=== PATIENT | male | born 1950 | race African-American/Black ===

== ENCOUNTER 2016-04-22 19:21 | Emergency (ER) | payer MEDICARE ==
[~2016-04-22] VITALS: Ht 180.3 cm; Wt 81.8 kg
[~2016-04-22 19:21] MED LIST: ALBU8.5H IH; ASPI-1061 PO; FLUT1DIS5 PO; INSLAN SQ; IPRA0.2S54 IH; IPRAHFA IH; METH10 PO; MONT10TA21 PO; OXYC10TA93 PO; PRED20 PO
[2016-04-22] MEDS ORDERED: IPRATROPIUM BROMIDE 0.5 MG/2.5 ML NEB SOLUTION NEB ONE (19:45)
[2016-04-22] MEDS ORDERED: ALBUTEROL SULFATE 5 MG/ML 20 ML NEB SOLN [BULK] NEB ONE (19:45)
[2016-04-22] MEDS ORDERED: MethylPREDNISolone SOD SUCC 125 MG/2 ML VIAL IVP ONE (19:45)
[2016-04-22] MEDS ORDERED: 0.9% SODIUM CHLORIDE 5 ML NEB SOLUTION NEB ONE (19:51)
[2016-04-22 20:27] VITALS: BP 135/72
== END 2016-04-22 20:52 | disposition left against medical advice (07) ==
LOC: EMS 19:23
DX: J18.9 Pneumonia, unspecified organism (principal); J44.9 Chronic obstructive pulmonary disease, unspecified; J45.909 Unspecified asthma, uncomplicated; I11.0 Hypertensive heart disease with heart failure; I50.9 Heart failure, unspecified; E11.9 Type 2 diabetes mellitus without complications; E78.00 Pure hypercholesterolemia, unspecified; F14.90 Cocaine use, unspecified, uncomplicated; F11.90 Opioid use, unspecified, uncomplicated; Z79.82 Long term (current) use of aspirin; Z79.4 Long term (current) use of insulin; Z87.891 Personal history of nicotine dependence
CPT/HCPCS: 93005; 94644; 99285; J2930

== ENCOUNTER 2016-05-20 22:16 | Inpatient (IN) | payer MEDICARE ==
[~2016-05-20] VITALS: Ht 180.3 cm; Wt 79.7 kg
[~2016-05-20 22:16] MED LIST changes: -PRED20 PO
[2016-05-20] MEDS ORDERED: ALBUTEROL SULFATE 2.5 MG/0.5 ML NEB SOLUTION NEB ONE (22:25)
[2016-05-20] MEDS ORDERED: IPRATROPIUM BROMIDE 0.5 MG/2.5 ML NEB SOLUTION NEB ONE ×2 (22:25→23:15)
[2016-05-20] MEDS ORDERED: PREG75 PO (22:29)
[2016-05-20] MEDS ORDERED: MONT10TA21 PO (22:29)
[2016-05-20] MEDS ORDERED: TIOT185 IH (22:29)
[2016-05-20] MEDS ORDERED: ALPR0.255 PO (22:29)
[2016-05-20] MEDS ORDERED: HYDR-3971 PO (22:29)
[2016-05-20] MEDS ORDERED: PRED20 PO (22:29)
[2016-05-20] MEDS ORDERED: ADV500 IH (22:29)
[2016-05-20] MEDS ORDERED: METO100XL PO (22:29)
[2016-05-20] MEDS ORDERED: [UNRECOGNIZED DRUG - CODE] TD (22:29)
[2016-05-20] MEDS ORDERED: FAMO20 PO (22:29)
[2016-05-20] MEDS ORDERED: ZOLP10 PO (22:29)
[2016-05-20] MEDS ORDERED: IPRA3AMP4 NEB (22:29)
[2016-05-20] MEDS ORDERED: OXYC10 PO (22:29)
[2016-05-20] MEDS ORDERED: ERGO400T3 PO (22:29)
[2016-05-20] MEDS ORDERED: TRAZ-147 PO (22:29)
[2016-05-20 22:46] LABS: GLUCOSE,POINT OF CARE 130 MG/DL (70-110)
[2016-05-20 22:59] LABS: BASOPHILS % (AUTO) 0.4 % (0.0-2.0); EOSINOPHILS % (AUTO) 2.9 % (1.0-6.0); HEMATOCRIT 44.8 % (41-53); HEMOGLOBIN 14.2 g/dL (13.5-17.5); LYMPHOCYTES # (AUTO) 1.7 K/uL (1.0-4.8); LYMPHOCYTES % (AUTO) 20.6 % (22.0-44.0); MEAN CORPUSCULAR HEMOGLOBIN 27.8 pg (26.0-34.0); MEAN CORPUSCULAR HGB CONC 31.8 G/dL (31.0-37.0); MEAN CORPUSCULAR VOLUME 88 fL (80-100); MONOCYTES # (AUTO) 0.3 K/uL (0.1-1.0); MONOCYTES % (AUTO) 3.4 % (2.0-9.0); NEUTROPHILS % (AUTO) 72.7 % (40.0-70.0); PLATELET COUNT (AUTO) 122 K/uL (150-450); RED BLOOD CELL COUNT(AUTO) 5.11 MIL/uL (4.50-5.90); WHITE BLOOD COUNT (AUTO) 8.3 K/uL (4.5-11.0)
[2016-05-20] MEDS ORDERED: ALBUTEROL SULFATE 5 MG/ML 20 ML NEB SOLN [BULK] NEB ONE (23:15)
[2016-05-20] MEDS ORDERED: MethylPREDNISolone SOD SUCC 125 MG/2 ML VIAL IM ONE (23:15)
[2016-05-20 23:18] LABS: RBC MORPHOLOGY COMMENT NORMAL RBC MORPH
[2016-05-20 23:23] LABS: B-TYPE NATRIURETIC PEPTIDE 78 pg/mL (0-100)
[2016-05-20 23:26] LABS: ANION GAP 5 mmol/L (8-16); CALCIUM, TOTAL 8.3 mg/dL (8.8-10.5); CARBON DIOXIDE 35 mmol/L (22-29); CHLORIDE 103 mmol/L (98-107); CREATININE 1.46 mg/dL (0.60-1.30); GLOMERULAR FILTR. RATE CALC 58 mL/min (>60); POTASSIUM 4.1 mmol/L (3.5-5.1); SODIUM SERUM 143 mmol/L (136-145); UREA NITROGEN, BLOOD 21 mg/dL (7-18)
[2016-05-20 23:33] LABS: INR 1.1 (0.9-1.1); PROTHROMBIN TIME 11.3 SEC (9.4-11.6)
[2016-05-20 23:34] LABS: ALANINE AMINOTRANSFERASE 25 U/L (12-78); ALBUMIN 3.4 g/dL (3.4-5.0); ASPARTATE AMINOTRANSFERASE 23 U/L (15-37); BILIRUBIN,TOTAL 0.6 mg/dL (0.1-1.0); CREATINE KINASE, TOTAL 69 U/L (39-308); TOTAL PROTEIN, SERUM 7.6 g/dL (6.4-8.2)
[2016-05-21] MEDS ORDERED: ALBUTEROL SULFATE HFA 90 MCG/PUFF 8 GM INHALER IH ONE (00:45)
[2016-05-21] MEDS ORDERED: ACETAMINOPHEN 325 MG TABLET PO PRN (02:15)
[2016-05-21] MEDS ORDERED: ONDANSETRON HCL 4 MG/2 ML VIAL IVP PRN ×2 (02:15→05:45)
[2016-05-21] MEDS ORDERED: 0.9% SODIUM CHLORIDE 10 ML SYRINGE IVP PRN ×2 (02:15→05:45)
[2016-05-21] MEDS ORDERED: ALBUTEROL SULFATE 2.5 MG/0.5 ML NEB SOLUTION NEB SCH (03:00)
[2016-05-21] MEDS ORDERED: IPRATROPIUM BROMIDE 0.5 MG/2.5 ML NEB SOLUTION NEB SCH (03:00)
[2016-05-21 04:02] VITALS: BP 100/59
[2016-05-21] MEDS ORDERED: OxyCODONE HCL 10 MG ER TABLET PO PRN (05:00)
[2016-05-21] MEDS ORDERED: GuaiFENesin/D-METHORPHAN [SUGAR-FREE] 200-20MG/10 ML SYRUP UDCUP PO PRN (05:15)
[2016-05-21] MEDS ORDERED: IPRATROPIUM BROMIDE 0.5 MG/2.5 ML NEB SOLUTION NEB PRN (05:30)
[2016-05-21] MEDS ORDERED: ALBUTEROL SULFATE 2.5 MG/0.5 ML NEB SOLUTION NEB PRN (05:30)
[2016-05-21] MEDS ORDERED: ZOLPIDEM TARTRATE 10 MG TABLET PO PRN (05:30)
[2016-05-21] MEDS ORDERED: DEXTROSE 50%-WATER 25 GM/50 ML SYRINGE IVP PRN (05:30)
[2016-05-21] MEDS ORDERED: NITROGLYCERIN TD PRN (05:30)
[2016-05-21] MEDS ORDERED: OxyCODONE HCL/ACETAMINOPHEN 5-325 MG TABLET PO PRN ×2 (05:45)
[2016-05-21] MEDS ORDERED: INFLUENZA VIRUS VACCINE QVS 2016-17 (3YR+)/PF 60 MCG/0.5 ML SYRINGE IM ONE (05:45)
[2016-05-21] MEDS ORDERED: MethylPREDNISolone SOD SUCC 125 MG/2 ML VIAL IVP ONE (06:00)
[2016-05-21] MEDS: INSULIN ASPART 100 UNITS/ML SQ PRN ×4 (06:19→21:04)
[2016-05-21] MEDS: MethylPREDNISolone SOD SUCC 125 MG/2 ML VIAL IVP SCH ×2 (06:31→16:01)
[2016-05-21] MEDS: HYDROCODONE/ACETAMINOPHEN 10-325 MG TABLET PO PRN (06:37)
[2016-05-21 07:31] VITALS: BP 129/84
[2016-05-21] MEDS: ALBUTEROL SULFATE 2.5 MG/0.5 ML NEB SOLUTION NEB SCH ×3 (07:52→19:44)
[2016-05-21] MEDS: IPRATROPIUM BROMIDE 0.5 MG/2.5 ML NEB SOLUTION NEB SCH ×3 (07:52→19:44)
[2016-05-21] MEDS ORDERED: OXYGEN THERAPY IH SCH (08:00)
[2016-05-21] MEDS: PREGABALIN 75 MG CAPSULE PO SCH ×2 (08:26→21:01)
[2016-05-21] MEDS: ALPRAZolam 0.25 MG TABLET PO SCH ×2 (08:26→16:08)
[2016-05-21] MEDS: PANTOPRAZOLE SODIUM 40 MG/VIAL IVP SCH (08:26)
[2016-05-21] MEDS: TIOTROPIUM BROMIDE 18 MCG/INH HANDIHALER [5] IH SCH (08:26)
[2016-05-21] MEDS: MONTELUKAST SODIUM 10 MG TABLET PO SCH (08:27)
[2016-05-21] MEDS: DOCUSATE SODIUM 100 MG CAPSULE PO SCH ×3 (08:27→21:06)
[2016-05-21] MEDS: INSULIN DETEMIR 100 UNITS/ML SQ SCH (08:28)
[2016-05-21 11:43] LABS: GLUCOSE,POINT OF CARE 329 MG/DL (70-110)
[2016-05-21 11:52] LABS: GLUCOSE,POINT OF CARE 282 MG/DL (70-110)
[2016-05-21 12:07] VITALS: BP 120/63
[2016-05-21] MEDS: METOPROLOL SUCCINATE 50 MG ER TABLET PO SCH (16:01)
[2016-05-21 16:03] VITALS: BP 149/83
[2016-05-21 17:32] LABS: GLUCOSE,POINT OF CARE 379 MG/DL (70-110)
[2016-05-21 20:41] VITALS: BP 112/70
[2016-05-21] MEDS ORDERED: TraZODone HCL 100 MG TABLET PO SCH (21:00)
[2016-05-22] MEDS: ALPRAZolam 0.25 MG TABLET PO SCH ×3 (00:25→16:29)
[2016-05-22] MEDS: MethylPREDNISolone SOD SUCC 125 MG/2 ML VIAL IVP SCH ×3 (00:25→16:29)
[2016-05-22 00:34] VITALS: BP 108/69
[2016-05-22] MEDS: HYDROCODONE/ACETAMINOPHEN 10-325 MG TABLET PO PRN (00:34)
[2016-05-22 00:47] LABS: GLUCOSE COMMENT 1 Received Meds; GLUCOSE,POINT OF CARE 183 MG/DL (70-110)
[2016-05-22] MEDS: IPRATROPIUM BROMIDE 0.5 MG/2.5 ML NEB SOLUTION NEB SCH ×4 (01:39→18:44)
[2016-05-22] MEDS: ALBUTEROL SULFATE 2.5 MG/0.5 ML NEB SOLUTION NEB SCH ×4 (01:41→18:44)
[2016-05-22 06:14] VITALS: BP 132/68
[2016-05-22] MEDS: INSULIN ASPART 100 UNITS/ML SQ PRN ×4 (06:23→20:50)
[2016-05-22 07:21] VITALS: BP 104/58
[2016-05-22 07:51] LABS: GLUCOSE COMMENT 1 Received Meds; GLUCOSE,POINT OF CARE 221 MG/DL (70-110)
[2016-05-22] MEDS: PANTOPRAZOLE SODIUM 40 MG/VIAL IVP SCH (08:39)
[2016-05-22] MEDS: MONTELUKAST SODIUM 10 MG TABLET PO SCH (08:40)
[2016-05-22] MEDS: METOPROLOL SUCCINATE 50 MG ER TABLET PO SCH (08:40)
[2016-05-22] MEDS: TIOTROPIUM BROMIDE 18 MCG/INH HANDIHALER [5] IH SCH (08:40)
[2016-05-22] MEDS: PREGABALIN 75 MG CAPSULE PO SCH (08:43)
[2016-05-22] MEDS: INSULIN DETEMIR 100 UNITS/ML SQ SCH (08:46)
[2016-05-22 08:54] LABS: HEMATOCRIT 42.6 % (41-53); HEMOGLOBIN 13.6 g/dL (13.5-17.5); MEAN CORPUSCULAR HEMOGLOBIN 27.9 pg (26.0-34.0); MEAN CORPUSCULAR HGB CONC 31.8 G/dL (31.0-37.0); MEAN CORPUSCULAR VOLUME 88 fL (80-100); PLATELET COUNT (AUTO) 101 K/uL (150-450); RED BLOOD CELL COUNT(AUTO) 4.85 MIL/uL (4.50-5.90); RED CELL DISTRIBUTION WIDTH 15.1 % (11.5-14.5)
[2016-05-22 09:25] LABS: POTASSIUM 4.7 mmol/L (3.5-5.1)
[2016-05-22 09:26] LABS: CALCIUM, TOTAL 8.5 mg/dL (8.8-10.5); CREATININE 1.56 mg/dL (0.60-1.30)
[2016-05-22 09:42] LABS: WHITE BLOOD COUNT (AUTO) 13.6 K/uL (4.5-11.0)
[2016-05-22 09:45] LABS: LYMPHOCYTES % (MANUAL) 8 % (22-44); TOTAL CELLS COUNTED 100
[2016-05-22 11:36] VITALS: BP 112/70
[2016-05-22 12:47] LABS: GLUCOSE,POINT OF CARE 326 MG/DL (70-110)
[2016-05-22 15:19] VITALS: BP 124/76
[2016-05-22 19:51] LABS: GLUCOSE,POINT OF CARE 290 MG/DL (70-110)
[2016-05-22 20:45] VITALS: BP 119/75
[2016-05-23 01:32] LABS: GLUCOSE,POINT OF CARE 263 MG/DL (70-110)
== END 2016-05-22 22:45 | disposition home or self-care (01) | DRG 189 ==
LOC: EMS 22:19 → 6N 05-21 02:15
PROVIDERS: ADMIT Internal Medicine; ATTEND Internal Medicine
DX: J96.20 Acute and chronic respiratory failure, unspecified whether with hypoxia or hypercapnia (principal); J44.1 Chronic obstructive pulmonary disease with (acute) exacerbation; J98.11 Atelectasis; I11.0 Hypertensive heart disease with heart failure; E86.0 Dehydration; E78.00 Pure hypercholesterolemia, unspecified; E11.9 Type 2 diabetes mellitus without complications; F11.99 Opioid use, unspecified with unspecified opioid-induced disorder; F11.90 Opioid use, unspecified, uncomplicated; I50.9 Heart failure, unspecified; F14.90 Cocaine use, unspecified, uncomplicated; I51.7 Cardiomegaly; J45.909 Unspecified asthma, uncomplicated; K21.9 Gastro-esophageal reflux disease without esophagitis; Z87.891 Personal history of nicotine dependence; Z99.81 Dependence on supplemental oxygen; Z79.2 Long term (current) use of antibiotics; Z79.82 Long term (current) use of aspirin; Z79.4 Long term (current) use of insulin; Z79.899 Other long term (current) drug therapy; Z28.21 Immunization not carried out because of patient refusal; Z79.51 Long term (current) use of inhaled steroids; Z98.890 Other specified postprocedural states
CPT/HCPCS: 82962; 87081; 93005; 94640; 96372; 99285; C9113; J2930; J3535

== ENCOUNTER 2016-06-05 13:15 | Inpatient (IN) | payer MEDICARE ==
[~2016-06-05] VITALS: Ht 180.3 cm; Wt 94.5 kg
[~2016-06-05 13:15] MED LIST changes: +ADV500 IH; -ALBU8.5H IH; +ALPR0.255 PO; -ASPI-1061 PO; +ERGO400T3 PO; +FAMO20 PO; -FLUT1DIS5 PO; +HYDR-3971 PO; -IPRA0.2S54 IH; +IPRA3AMP4 NEB; -IPRAHFA IH; -METH10 PO; +METO100XL PO; +OXYC10 PO; -OXYC10TA93 PO; +PRED20 PO; +PREG75 PO; +TIOT185 IH; +TRAZ-147 PO; +ZOLP10 PO; +[UNRECOGNIZED DRUG - CODE] TD
[2016-06-05] MEDS ORDERED: IPRATROPIUM BROMIDE 0.5 MG/2.5 ML NEB SOLUTION NEB ONE ×2 (13:30→14:00)
[2016-06-05] MEDS ORDERED: ALBUTEROL SULFATE 2.5 MG/0.5 ML NEB SOLUTION NEB ONE ×2 (13:30)
[2016-06-05 13:52] LABS: BASOPHILS # (AUTO) 0.04 K/uL (0.00-0.20); BASOPHILS % (AUTO) 0.5 % (0.0-2.0); EOSINOPHILS # (AUTO) 0.04 K/uL (0.00-0.70); EOSINOPHILS % (AUTO) 0.48 % (1.0-6.0); HEMATOCRIT 38.7 % (41-53); HEMOGLOBIN 12.9 g/dL (13.5-17.5); LYMPHOCYTES # (AUTO) 0.9 K/uL (1.0-4.8); LYMPHOCYTES % (AUTO) 10.7 % (22.0-44.0); MEAN CORPUSCULAR HEMOGLOBIN 28.7 pg (26.0-34.0); MEAN CORPUSCULAR HGB CONC 33.3 G/dL (31.0-37.0); MEAN CORPUSCULAR VOLUME 86 fL (80-100); MONOCYTES # (AUTO) 0.2 K/uL (0.1-1.0); MONOCYTES % (AUTO) 1.9 % (2.0-9.0); NEUTROPHILS # (AUTO) 7.1 K/uL (1.8-7.7); PLATELET COUNT (AUTO) 131 K/uL (150-450); RED BLOOD CELL COUNT(AUTO) 4.49 MIL/uL (4.50-5.90); WHITE BLOOD COUNT (AUTO) 8.2 K/uL (4.5-11.0)
[2016-06-05 13:56] LABS: NEUTROPHILS % (AUTO) 86.4 % (40.0-70.0)
[2016-06-05] MEDS ORDERED: MethylPREDNISolone SOD SUCC 125 MG/2 ML VIAL IVP ONE (14:00)
[2016-06-05] MEDS ORDERED: ASPIRIN 81 MG CHEWABLE TABLET PO ONE (14:00)
[2016-06-05] MEDS ORDERED: ALBUTEROL SULFATE 5 MG/ML 20 ML NEB SOLN [BULK] NEB ONE (14:00)
[2016-06-05] MEDS ORDERED: NITROGLYCERIN 2% (1 GM=INCH) PACKET TP ONE (14:00)
[2016-06-05] MEDS ORDERED: 0.9% SODIUM CHLORIDE 5 ML NEB SOLUTION NEB ONE (14:02)
[2016-06-05 14:06] LABS: ANION GAP 5 mmol/L (8-16); CALCIUM, TOTAL 8.1 mg/dL (8.8-10.5); CARBON DIOXIDE 34 mmol/L (22-29); CHLORIDE 105 mmol/L (98-107); CREATININE 1.41 mg/dL (0.60-1.30); GLOMERULAR FILTR. RATE CALC > 60 mL/min (>60); POTASSIUM 4.2 mmol/L (3.5-5.1); SODIUM SERUM 144 mmol/L (136-145); UREA NITROGEN, BLOOD 24 mg/dL (7-18)
[2016-06-05 14:09] LABS: ALANINE AMINOTRANSFERASE 33 U/L (12-78); ALBUMIN 2.9 g/dL (3.4-5.0); ASPARTATE AMINOTRANSFERASE 14 U/L (15-37); BILIRUBIN,TOTAL 0.3 mg/dL (0.1-1.0); CREATINE KINASE, TOTAL 39 U/L (39-308); TOTAL PROTEIN, SERUM 6.8 g/dL (6.4-8.2)
[2016-06-05 14:26] LABS: B-TYPE NATRIURETIC PEPTIDE 158 pg/mL (0-100)
[2016-06-05 14:34] LABS: APPEARANCE,URINE CLOUDY (CLEAR); GLUCOSE, URINE (UA) NEGATIVE (NEGATIVE); KETONES,URINE NEGATIVE (NEGATIVE); LEUKOCYTE ESTERASE ,URINE TRACE (NEGATIVE); OCCULT BLOOD,URINE NEGATIVE (NEGATIVE); PROTEIN,URINE NEGATIVE (NEGATIVE)
[2016-06-05 14:35] LABS: ADD UA MICROSCOPIC YES
[2016-06-05 14:37] LABS: RBC,URINE None Seen /HPF (0-2)
[2016-06-05 14:38] LABS: SQUAMOUS EPITHELIAL CELL,UR Rare /LPF (None Seen)
[2016-06-05 15:11] LABS: ABG A-A DIFF O2 45.7 mmHg (10-20.0); ABG BASE EXCESS 6.1 mmol/L (-2.0-3.0); ABG HCO3 28.5 mmol/L (22.0-26.0); ABG OXYHEMOGLOBIN 95.4 % (94.0-100.0); ABG PCO2 59 mmHg (35-45); TEMPERATURE, FAHRENHEIT, BG 98.6 FAHREN (96.0-98.6)
[2016-06-05 15:12] LABS: ALLEN TEST, BLOOD GAS Positive
[2016-06-05 15:13] LABS: IPAP, BG 15 cm H2O
[2016-06-05] MEDS ORDERED: ACETAMINOPHEN 325 MG TABLET PO PRN (15:15)
[2016-06-05] MEDS ORDERED: DEXTROSE 50%-WATER 25 GM/50 ML SYRINGE IVP PRN (15:15)
[2016-06-05] MEDS ORDERED: ONDANSETRON HCL 4 MG/2 ML VIAL IVP PRN (15:15)
[2016-06-05] MEDS ORDERED: ZOLPIDEM TARTRATE 10 MG TABLET PO PRN (15:15)
[2016-06-05] MEDS ORDERED: SODIUM CHLORIDE 0.9% 0 ML IV ONE (18:25)
[2016-06-05 18:27] LABS: GLUCOSE,POINT OF CARE 215 MG/DL (70-110)
[2016-06-05 18:43] VITALS: BP 137/75
[2016-06-05] MEDS: HEPARIN SODIUM,PORCINE 5,000 UNITS/ML VIAL SQ SCH (18:53)
[2016-06-05] MEDS: MethylPREDNISolone SOD SUCC 125 MG/2 ML VIAL IVP SCH (18:53)
[2016-06-05] MEDS: OxyCODONE HCL/ACETAMINOPHEN 5-325 MG TABLET PO PRN (18:56)
[2016-06-05] MEDS: ALPRAZolam 0.25 MG TABLET PO SCH (18:56)
[2016-06-05] MEDS: INSULIN ASPART 100 UNITS/ML SQ PRN ×2 (18:59→20:56)
[2016-06-05] MEDS: ALBUTEROL SULFATE 2.5 MG/0.5 ML NEB SOLUTION NEB SCH (20:05)
[2016-06-05] MEDS: IPRATROPIUM BROMIDE 0.5 MG/2.5 ML NEB SOLUTION NEB SCH (20:05)
[2016-06-05] MEDS ORDERED: SODIUM CHLORIDE 0.9% 250 ML IV ONE (20:40)
[2016-06-05] MEDS: LEVOFLOXACIN 500 MG/D5% WATER 100 ML IV SCH (20:53)
[2016-06-05] MEDS: PREGABALIN 75 MG CAPSULE PO SCH (20:53)
[2016-06-05] MEDS: TraZODone HCL 100 MG TABLET PO SCH (20:54)
[2016-06-05] MEDS: INSULIN DETEMIR 100 UNITS/ML SQ SCH (20:55)
[2016-06-05 23:17] LABS: GLUCOSE COMMENT 1 Received Meds; GLUCOSE,POINT OF CARE 274 MG/DL (70-110)
[2016-06-06] VITALS (7 sets, daily range): BP systolic 97–118; BP diastolic 52–74
[2016-06-06] MEDS: HEPARIN SODIUM,PORCINE 5,000 UNITS/ML VIAL SQ SCH ×3 (00:09→16:12)
[2016-06-06] MEDS: ALPRAZolam 0.25 MG TABLET PO SCH ×3 (00:09→16:11)
[2016-06-06] MEDS: MethylPREDNISolone SOD SUCC 125 MG/2 ML VIAL IVP SCH ×4 (00:09→18:26)
[2016-06-06] MEDS: ALBUTEROL SULFATE 2.5 MG/0.5 ML NEB SOLUTION NEB SCH ×4 (01:19→21:01)
[2016-06-06] MEDS: IPRATROPIUM BROMIDE 0.5 MG/2.5 ML NEB SOLUTION NEB SCH ×4 (01:19→21:01)
[2016-06-06 02:57] LABS: GLUCOSE,POINT OF CARE 367 MG/DL (70-110)
[2016-06-06 06:00] LABS: EOSINOPHILS % (AUTO) 0 % (1.0-6.0); HEMATOCRIT 35.9 % (41-53); LYMPHOCYTES # (AUTO) 0.4 K/uL (1.0-4.8); LYMPHOCYTES % (AUTO) 5.9 % (22.0-44.0); MEAN CORPUSCULAR HGB CONC 33.4 G/dL (31.0-37.0); MEAN CORPUSCULAR VOLUME 87 fL (80-100); MONOCYTES # (AUTO) 0.1 K/uL (0.1-1.0); MONOCYTES % (AUTO) 1.2 % (2.0-9.0); NEUTROPHILS # (AUTO) 5.5 K/uL (1.8-7.7); PLATELET COUNT (AUTO) 118 K/uL (150-450); RED BLOOD CELL COUNT(AUTO) 4.13 MIL/uL (4.50-5.90)
[2016-06-06] MEDS: INSULIN ASPART 100 UNITS/ML SQ PRN ×4 (06:08→20:52)
[2016-06-06 06:21] LABS: ALANINE AMINOTRANSFERASE 28 U/L (12-78); ALBUMIN 2.7 g/dL (3.4-5.0); ANION GAP 7 mmol/L (8-16); ASPARTATE AMINOTRANSFERASE 11 U/L (15-37); BILIRUBIN,TOTAL 0.3 mg/dL (0.1-1.0); CALCIUM, TOTAL 8.2 mg/dL (8.8-10.5); CARBON DIOXIDE 31 mmol/L (22-29); CHLORIDE 103 mmol/L (98-107); CREATININE 1.37 mg/dL (0.60-1.30); GLOMERULAR FILTR. RATE CALC > 60 mL/min (>60); PHOSPHORUS 3.2 mg/dL (2.5-4.9); POTASSIUM 4.5 mmol/L (3.5-5.1); SODIUM SERUM 141 mmol/L (136-145); THYROID STIMULATING HORMONE 0.15 uIU/mL (0.36-3.74); TOTAL PROTEIN, SERUM 6.3 g/dL (6.4-8.2); UREA NITROGEN, BLOOD 27 mg/dL (7-18)
[2016-06-06 06:50] LABS: NEUTROPHILS % (AUTO) 92.9 % (40.0-70.0)
[2016-06-06 06:54] LABS: GLUCOSE COMMENT 1 Received Meds; GLUCOSE,POINT OF CARE 360 MG/DL (70-110)
[2016-06-06] MEDS: BUDESONIDE 0.5 MG/2 ML NEB SOLUTION NEB SCH ×2 (08:15→21:01)
[2016-06-06] MEDS: TIOTROPIUM BROMIDE 18 MCG/INH HANDIHALER [5] IH SCH (08:41)
[2016-06-06] MEDS: MONTELUKAST SODIUM 10 MG TABLET PO SCH (08:42)
[2016-06-06] MEDS: PREGABALIN 75 MG CAPSULE PO SCH ×2 (08:42→20:42)
[2016-06-06] MEDS: INSULIN DETEMIR 100 UNITS/ML SQ SCH ×2 (08:47→20:53)
[2016-06-06] MEDS ORDERED: METOPROLOL SUCCINATE 100 MG ER TABLET PO SCH (09:00)
[2016-06-06 10:44] LABS: ABG A-A DIFF O2 51.3 mmHg (10-20.0); ABG BASE EXCESS 7.6 mmol/L (-2.0-3.0); ABG OXYHEMOGLOBIN 94.7 % (94.0-100.0); ABG PCO2 56 mmHg (35-45); ABG PH 7.385 (7.35-7.450); TEMPERATURE, FAHRENHEIT, BG 97.8 FAHREN (96.0-98.6)
[2016-06-06 10:47] LABS: ALLEN TEST, BLOOD GAS Positive
[2016-06-06] MEDS: PANTOPRAZOLE SODIUM 40 MG DR TABLET PO SCH (11:41)
[2016-06-06] MEDS: OxyCODONE HCL/ACETAMINOPHEN 5-325 MG TABLET PO PRN ×3 (11:49→20:42)
[2016-06-06 11:57] LABS: GLUCOSE,POINT OF CARE 292 MG/DL (70-110)
[2016-06-06 11:57] LABS: GLUCOSE COMMENT 1 Received Meds; GLUCOSE,POINT OF CARE 292 MG/DL (70-110)
[2016-06-06] MEDS: LEVOFLOXACIN 500 MG/D5% WATER 100 ML IV SCH (19:41)
[2016-06-06] MEDS: TraZODone HCL 100 MG TABLET PO SCH (20:43)
[2016-06-07] MEDS: OxyCODONE HCL/ACETAMINOPHEN 5-325 MG TABLET PO PRN (00:38)
[2016-06-07] MEDS: HEPARIN SODIUM,PORCINE 5,000 UNITS/ML VIAL SQ SCH ×4 (00:38→23:56)
[2016-06-07] MEDS: MethylPREDNISolone SOD SUCC 125 MG/2 ML VIAL IVP SCH ×5 (00:38→23:55)
[2016-06-07] MEDS: ALPRAZolam 0.25 MG TABLET PO SCH ×4 (00:38→23:56)
[2016-06-07] MEDS: ALBUTEROL SULFATE 2.5 MG/0.5 ML NEB SOLUTION NEB SCH ×4 (01:53→18:37)
[2016-06-07] MEDS: IPRATROPIUM BROMIDE 0.5 MG/2.5 ML NEB SOLUTION NEB SCH ×4 (02:37→18:37)
[2016-06-07 04:49] VITALS: BP 119/72
[2016-06-07] MEDS: INSULIN ASPART 100 UNITS/ML SQ PRN ×4 (05:57→21:18)
[2016-06-07 06:29] LABS: EOSINOPHILS % (AUTO) 0.1 % (1.0-6.0); HEMATOCRIT 36.8 % (41-53); HEMOGLOBIN 11.7 g/dL (13.5-17.5); LYMPHOCYTES # (AUTO) 0.5 K/uL (1.0-4.8); LYMPHOCYTES % (AUTO) 4.3 % (22.0-44.0); MEAN CORPUSCULAR HGB CONC 31.7 G/dL (31.0-37.0); MEAN CORPUSCULAR VOLUME 88 fL (80-100); MONOCYTES # (AUTO) 0.3 K/uL (0.1-1.0); MONOCYTES % (AUTO) 2.8 % (2.0-9.0); NEUTROPHILS # (AUTO) 10.7 K/uL (1.8-7.7); PLATELET COUNT (AUTO) 112 K/uL (150-450); RED BLOOD CELL COUNT(AUTO) 4.17 MIL/uL (4.50-5.90); RED CELL DISTRIBUTION WIDTH 15.3 % (11.5-14.5); WHITE BLOOD COUNT (AUTO) 11.6 K/uL (4.5-11.0)
[2016-06-07 06:51] LABS: NEUTROPHILS % (AUTO) 92.8 % (40.0-70.0)
[2016-06-07 07:01] LABS: ALANINE AMINOTRANSFERASE 26 U/L (12-78); ALBUMIN 2.6 g/dL (3.4-5.0); ANION GAP 6 mmol/L (8-16); ASPARTATE AMINOTRANSFERASE 11 U/L (15-37); BILIRUBIN,TOTAL 0.3 mg/dL (0.1-1.0); CALCIUM, TOTAL 8.2 mg/dL (8.8-10.5); CARBON DIOXIDE 32 mmol/L (22-29); CHLORIDE 104 mmol/L (98-107); CREATININE 1.36 mg/dL (0.60-1.30); GLOMERULAR FILTR. RATE CALC > 60 mL/min (>60); POTASSIUM 4.6 mmol/L (3.5-5.1); SODIUM SERUM 142 mmol/L (136-145); TOTAL PROTEIN, SERUM 6.1 g/dL (6.4-8.2); UREA NITROGEN, BLOOD 32 mg/dL (7-18)
[2016-06-07 07:21] LABS: GLUCOSE COMMENT 1 Received Meds; GLUCOSE,POINT OF CARE 312 MG/DL (70-110)
[2016-06-07 07:23] VITALS: BP 111/73
[2016-06-07 07:52] LABS: GLUCOSE COMMENT 1 Received Meds; GLUCOSE,POINT OF CARE 234 MG/DL (70-110)
[2016-06-07] MEDS: PANTOPRAZOLE SODIUM 40 MG DR TABLET PO SCH (08:22)
[2016-06-07] MEDS: METOPROLOL SUCCINATE 50 MG ER TABLET PO SCH (08:23)
[2016-06-07] MEDS: MONTELUKAST SODIUM 10 MG TABLET PO SCH (08:23)
[2016-06-07] MEDS: PREGABALIN 75 MG CAPSULE PO SCH ×2 (08:23→21:12)
[2016-06-07] MEDS: BUDESONIDE 0.5 MG/2 ML NEB SOLUTION NEB SCH ×2 (08:41→18:37)
[2016-06-07] MEDS: INSULIN DETEMIR 100 UNITS/ML SQ SCH ×2 (09:17→21:18)
[2016-06-07 11:24] VITALS: BP 122/72
[2016-06-07 11:27] LABS: TEMPERATURE, FAHRENHEIT, BG 97.6 FAHREN (96.0-98.6)
[2016-06-07 11:38] LABS: ABG A-A DIFF O2 94.7 mmHg (10-20.0); ABG BASE EXCESS 3.7 mmol/L (-2.0-3.0); ABG HCO3 26.8 mmol/L (22.0-26.0); ABG OXYHEMOGLOBIN 92.9 % (94.0-100.0); ABG PCO2 52 mmHg (35-45); ABG PH 7.366 (7.35-7.450)
[2016-06-07 11:39] LABS: ALLEN TEST, BLOOD GAS Positive
[2016-06-07] MEDS: TIOTROPIUM BROMIDE 18 MCG/INH HANDIHALER [5] IH SCH (11:45)
[2016-06-07 12:42] LABS: GLUCOSE COMMENT 1 Received Meds; GLUCOSE,POINT OF CARE 293 MG/DL (70-110)
[2016-06-07 15:39] VITALS: BP 110/72
[2016-06-07] MEDS ORDERED: 0.9% SODIUM CHLORIDE 5 ML NEB SOLUTION NEB ONE (18:27)
[2016-06-07 19:42] VITALS: BP 122/68
[2016-06-07] MEDS: LEVOFLOXACIN 500 MG/D5% WATER 100 ML IV SCH (21:11)
[2016-06-07] MEDS: TraZODone HCL 100 MG TABLET PO SCH (21:12)
[2016-06-07 21:37] LABS: GLUCOSE COMMENT 1 Received Meds; GLUCOSE,POINT OF CARE 336 MG/DL (70-110)
[2016-06-07 23:17] VITALS: BP 128/65
[2016-06-08] MEDS: ALBUTEROL SULFATE 2.5 MG/0.5 ML NEB SOLUTION NEB SCH ×4 (02:26→19:51)
[2016-06-08] MEDS: IPRATROPIUM BROMIDE 0.5 MG/2.5 ML NEB SOLUTION NEB SCH ×4 (02:26→19:51)
[2016-06-08 04:43] VITALS: BP 100/60
[2016-06-08] MEDS: MethylPREDNISolone SOD SUCC 125 MG/2 ML VIAL IVP SCH ×4 (05:31→23:47)
[2016-06-08] MEDS: INSULIN ASPART 100 UNITS/ML SQ PRN ×4 (05:34→21:06)
[2016-06-08 06:18] LABS: EOSINOPHILS % (AUTO) 0 % (1.0-6.0); HEMATOCRIT 36.9 % (41-53); HEMOGLOBIN 11.9 g/dL (13.5-17.5); LYMPHOCYTES # (AUTO) 0.3 K/uL (1.0-4.8); LYMPHOCYTES % (AUTO) 3.5 % (22.0-44.0); MEAN CORPUSCULAR HEMOGLOBIN 28.4 pg (26.0-34.0); MEAN CORPUSCULAR HGB CONC 32.3 G/dL (31.0-37.0); MEAN CORPUSCULAR VOLUME 88 fL (80-100); MONOCYTES # (AUTO) 0.3 K/uL (0.1-1.0); MONOCYTES % (AUTO) 2.7 % (2.0-9.0); NEUTROPHILS # (AUTO) 8.8 K/uL (1.8-7.7); PLATELET COUNT (AUTO) 111 K/uL (150-450); RED BLOOD CELL COUNT(AUTO) 4.19 MIL/uL (4.50-5.90); RED CELL DISTRIBUTION WIDTH 15.4 % (11.5-14.5); WHITE BLOOD COUNT (AUTO) 9.4 K/uL (4.5-11.0)
[2016-06-08 06:36] LABS: ALANINE AMINOTRANSFERASE 27 U/L (12-78); ALBUMIN 2.6 g/dL (3.4-5.0); ANION GAP 5 mmol/L (8-16); ASPARTATE AMINOTRANSFERASE 10 U/L (15-37); BILIRUBIN,TOTAL 0.3 mg/dL (0.1-1.0); CALCIUM, TOTAL 8.2 mg/dL (8.8-10.5); CARBON DIOXIDE 32 mmol/L (22-29); CHLORIDE 105 mmol/L (98-107); CREATININE 1.16 mg/dL (0.60-1.30); GLOMERULAR FILTR. RATE CALC > 60 mL/min (>60); POTASSIUM 4.6 mmol/L (3.5-5.1); SODIUM SERUM 142 mmol/L (136-145); TOTAL PROTEIN, SERUM 5.9 g/dL (6.4-8.2); UREA NITROGEN, BLOOD 29 mg/dL (7-18)
[2016-06-08 06:52] LABS: GLUCOSE COMMENT 1 Received Meds; GLUCOSE,POINT OF CARE 216 MG/DL (70-110)
[2016-06-08] MEDS ORDERED: GuaiFENesin/D-METHORPHAN/PHENYLEPH 5 ML LIQUID ORAL.SYG PO PRN (07:00)
[2016-06-08 07:19] LABS: NEUTROPHILS % (AUTO) 93.8 % (40.0-70.0)
[2016-06-08 07:29] VITALS: BP 122/56
[2016-06-08] MEDS: HEPARIN SODIUM,PORCINE 5,000 UNITS/ML VIAL SQ SCH ×3 (08:01→23:47)
[2016-06-08] MEDS: PREGABALIN 75 MG CAPSULE PO SCH ×2 (08:01→20:55)
[2016-06-08] MEDS: MONTELUKAST SODIUM 10 MG TABLET PO SCH (08:02)
[2016-06-08] MEDS: PANTOPRAZOLE SODIUM 40 MG DR TABLET PO SCH (08:02)
[2016-06-08] MEDS: ALPRAZolam 0.25 MG TABLET PO SCH ×3 (08:02→23:47)
[2016-06-08] MEDS: METOPROLOL SUCCINATE 50 MG ER TABLET PO SCH (08:03)
[2016-06-08] MEDS: BUDESONIDE 0.5 MG/2 ML NEB SOLUTION NEB SCH ×2 (08:05→19:51)
[2016-06-08] MEDS: INSULIN DETEMIR 100 UNITS/ML SQ SCH ×2 (08:08→21:06)
[2016-06-08] MEDS: TIOTROPIUM BROMIDE 18 MCG/INH HANDIHALER [5] IH SCH (09:02)
[2016-06-08 11:45] VITALS: BP 110/56
[2016-06-08 16:36] VITALS: BP 112/80
[2016-06-08] MEDS ORDERED: BISACODYL 10 MG RECTAL RECTAL SUPPOSITORY PR PRN (19:15)
[2016-06-08 20:37] VITALS: BP 130/80
[2016-06-08] MEDS: OxyCODONE HCL/ACETAMINOPHEN 5-325 MG TABLET PO PRN (20:55)
[2016-06-08] MEDS: TraZODone HCL 100 MG TABLET PO SCH (20:55)
[2016-06-08] MEDS: MAGNESIUM HYDROXIDE SUSPENSION 30 ML UDCUP PO PRN (20:56)
[2016-06-08] MEDS: LEVOFLOXACIN 500 MG/D5% WATER 100 ML IV SCH (21:18)
[2016-06-08 23:56] VITALS: BP 112/58
[2016-06-09] MEDS: ALBUTEROL SULFATE 2.5 MG/0.5 ML NEB SOLUTION NEB SCH ×4 (02:12→21:33)
[2016-06-09] MEDS: IPRATROPIUM BROMIDE 0.5 MG/2.5 ML NEB SOLUTION NEB SCH ×4 (02:12→21:33)
[2016-06-09 04:32] VITALS: BP 123/63
[2016-06-09] MEDS: MethylPREDNISolone SOD SUCC 125 MG/2 ML VIAL IVP SCH ×3 (05:36→18:53)
[2016-06-09] MEDS: INSULIN ASPART 100 UNITS/ML SQ PRN ×4 (05:37→20:57)
[2016-06-09 07:30] VITALS: BP 118/68
[2016-06-09] MEDS: BUDESONIDE 0.5 MG/2 ML NEB SOLUTION NEB SCH ×2 (08:11→21:33)
[2016-06-09] MEDS: ALPRAZolam 0.25 MG TABLET PO SCH ×2 (09:28→17:58)
[2016-06-09] MEDS: PANTOPRAZOLE SODIUM 40 MG DR TABLET PO SCH (09:29)
[2016-06-09] MEDS: HEPARIN SODIUM,PORCINE 5,000 UNITS/ML VIAL SQ SCH ×2 (09:29→17:58)
[2016-06-09] MEDS: PREGABALIN 75 MG CAPSULE PO SCH ×2 (09:29→20:18)
[2016-06-09] MEDS: TIOTROPIUM BROMIDE 18 MCG/INH HANDIHALER [5] IH SCH (09:29)
[2016-06-09] MEDS: METOPROLOL SUCCINATE 50 MG ER TABLET PO SCH (09:30)
[2016-06-09] MEDS: INSULIN DETEMIR 100 UNITS/ML SQ SCH ×2 (09:33→20:57)
[2016-06-09 11:17] VITALS: BP 131/53
[2016-06-09] MEDS: MONTELUKAST SODIUM 10 MG TABLET PO SCH (12:40)
[2016-06-09 15:52] VITALS: BP 128/62
[2016-06-09 19:36] VITALS: BP 125/67
[2016-06-09] MEDS ORDERED: SODIUM CHLORIDE 0.9% 50 ML ONE (20:10)
[2016-06-09] MEDS: LEVOFLOXACIN 500 MG/D5% WATER 100 ML IV SCH (20:15)
[2016-06-09] MEDS: TraZODone HCL 100 MG TABLET PO SCH (20:19)
[2016-06-09] MEDS: OxyCODONE HCL/ACETAMINOPHEN 5-325 MG TABLET PO PRN (22:31)
[2016-06-10] VITALS (7 sets, daily range): BP systolic 115–136; BP diastolic 67–78
[2016-06-10] MEDS: HEPARIN SODIUM,PORCINE 5,000 UNITS/ML VIAL SQ SCH ×4 (00:23→23:59)
[2016-06-10] MEDS: ALPRAZolam 0.25 MG TABLET PO SCH ×4 (00:23→23:59)
[2016-06-10] MEDS: MethylPREDNISolone SOD SUCC 125 MG/2 ML VIAL IVP SCH ×5 (00:23→23:59)
[2016-06-10] MEDS: ALBUTEROL SULFATE 2.5 MG/0.5 ML NEB SOLUTION NEB SCH ×4 (02:39→19:49)
[2016-06-10] MEDS: IPRATROPIUM BROMIDE 0.5 MG/2.5 ML NEB SOLUTION NEB SCH ×4 (02:39→19:49)
[2016-06-10] MEDS: INSULIN ASPART 100 UNITS/ML SQ PRN ×4 (05:47→21:03)
[2016-06-10] MEDS: OxyCODONE HCL/ACETAMINOPHEN 5-325 MG TABLET PO PRN ×2 (05:55→16:54)
[2016-06-10] MEDS: BUDESONIDE 0.5 MG/2 ML NEB SOLUTION NEB SCH ×2 (07:14→19:51)
[2016-06-10 07:27] LABS: GLUCOSE,POINT OF CARE 244 MG/DL (70-110)
[2016-06-10 07:52] LABS: GLUCOSE COMMENT 1 Received Meds; GLUCOSE,POINT OF CARE 298 MG/DL (70-110)
[2016-06-10] MEDS: MONTELUKAST SODIUM 10 MG TABLET PO SCH (08:26)
[2016-06-10] MEDS: PANTOPRAZOLE SODIUM 40 MG DR TABLET PO SCH (08:28)
[2016-06-10] MEDS: PREGABALIN 75 MG CAPSULE PO SCH ×2 (08:29→20:43)
[2016-06-10] MEDS: TIOTROPIUM BROMIDE 18 MCG/INH HANDIHALER [5] IH SCH (08:29)
[2016-06-10] MEDS: INSULIN DETEMIR 100 UNITS/ML SQ SCH ×2 (08:32→21:04)
[2016-06-10] MEDS: METOPROLOL SUCCINATE 50 MG ER TABLET PO SCH (11:04)
[2016-06-10] MEDS ORDERED: 0.9% SODIUM CHLORIDE 5 ML NEB SOLUTION NEB ONE (12:31)
[2016-06-10] MEDS: ALBUTEROL SULFATE 2.5 MG/0.5 ML NEB SOLUTION NEB PRN (12:39)
[2016-06-10] MEDS: MAGNESIUM HYDROXIDE SUSPENSION 30 ML UDCUP PO PRN (14:05)
[2016-06-10] MEDS ORDERED: INSULIN ASPART 100 UNITS/ML SQ ONE (14:30)
[2016-06-10 18:41] LABS: MAGNESIUM 2.6 mg/dL (1.80-2.40); PHOSPHORUS 2.9 mg/dL (2.5-4.9); POTASSIUM 4.4 mmol/L (3.5-5.1)
[2016-06-10] MEDS: TraZODone HCL 100 MG TABLET PO SCH (20:43)
[2016-06-10] MEDS: LEVOFLOXACIN 500 MG/D5% WATER 100 ML IV SCH (20:43)
[2016-06-11 01:07] LABS: GLUCOSE,POINT OF CARE 409 MG/DL (70-110)
[2016-06-11 01:07] LABS: GLUCOSE COMMENT 1 Received Meds; GLUCOSE,POINT OF CARE 323 MG/DL (70-110)
[2016-06-11 01:42] LABS: GLUCOSE COMMENT 1 Received Meds; GLUCOSE,POINT OF CARE 275 MG/DL (70-110)
[2016-06-11] MEDS: IPRATROPIUM BROMIDE 0.5 MG/2.5 ML NEB SOLUTION NEB SCH ×4 (02:54→19:51)
[2016-06-11] MEDS: ALBUTEROL SULFATE 2.5 MG/0.5 ML NEB SOLUTION NEB SCH ×4 (02:54→19:51)
[2016-06-11 04:58] VITALS: BP 101/70
[2016-06-11] MEDS: MethylPREDNISolone SOD SUCC 125 MG/2 ML VIAL IVP SCH ×4 (05:41→23:55)
[2016-06-11] MEDS: INSULIN ASPART 100 UNITS/ML SQ PRN ×4 (06:36→20:22)
[2016-06-11 07:29] VITALS: BP 122/74
[2016-06-11] MEDS: BUDESONIDE 0.5 MG/2 ML NEB SOLUTION NEB SCH ×2 (07:43→19:51)
[2016-06-11] MEDS: ALPRAZolam 0.25 MG TABLET PO SCH ×3 (08:00→23:55)
[2016-06-11] MEDS: HEPARIN SODIUM,PORCINE 5,000 UNITS/ML VIAL SQ SCH ×3 (08:51→23:55)
[2016-06-11] MEDS: TIOTROPIUM BROMIDE 18 MCG/INH HANDIHALER [5] IH SCH (08:51)
[2016-06-11] MEDS: INSULIN DETEMIR 100 UNITS/ML SQ SCH ×2 (08:51→20:21)
[2016-06-11] MEDS ORDERED: BISACODYL 5 MG EC TABLET PO PRN (09:30)
[2016-06-11] MEDS: OxyCODONE HCL/ACETAMINOPHEN 5-325 MG TABLET PO PRN (10:36)
[2016-06-11] MEDS: MAGNESIUM HYDROXIDE SUSPENSION 30 ML UDCUP PO PRN (10:37)
[2016-06-11] MEDS: MONTELUKAST SODIUM 10 MG TABLET PO SCH (10:37)
[2016-06-11] MEDS: PREGABALIN 75 MG CAPSULE PO SCH ×2 (10:37→20:23)
[2016-06-11] MEDS: METOPROLOL SUCCINATE 50 MG ER TABLET PO SCH (10:38)
[2016-06-11 11:27] LABS: GLUCOSE COMMENT 1 Received Meds; GLUCOSE,POINT OF CARE 259 MG/DL (70-110)
[2016-06-11 11:27] LABS: GLUCOSE COMMENT 1 Received Meds; GLUCOSE,POINT OF CARE 382 MG/DL (70-110)
[2016-06-11 11:32] LABS: GLUCOSE COMMENT 1 Received Meds; GLUCOSE,POINT OF CARE 242 MG/DL (70-110)
[2016-06-11 11:33] LABS: GLUCOSE COMMENT 1 Received Meds; GLUCOSE,POINT OF CARE 433 MG/DL (70-110)
[2016-06-11 11:33] LABS: GLUCOSE,POINT OF CARE 427 MG/DL (70-110)
[2016-06-11] MEDS: PANTOPRAZOLE SODIUM 40 MG DR TABLET PO SCH (13:00)
[2016-06-11 13:58] VITALS: BP 122/70
[2016-06-11 16:05] VITALS: BP 128/67
[2016-06-11 17:43] LABS: GLUCOSE COMMENT 1 Received Meds; GLUCOSE,POINT OF CARE 276 MG/DL (70-110)
[2016-06-11 17:47] LABS: GLUCOSE COMMENT 1 Received Meds; GLUCOSE,POINT OF CARE 301 MG/DL (70-110)
[2016-06-11 19:51] VITALS: BP 112/75
[2016-06-11] MEDS: LEVOFLOXACIN 500 MG/D5% WATER 100 ML IV SCH (20:23)
[2016-06-11] MEDS: TraZODone HCL 100 MG TABLET PO SCH (20:23)
[2016-06-12 00:11] VITALS: BP 124/52
[2016-06-12] MEDS: IPRATROPIUM BROMIDE 0.5 MG/2.5 ML NEB SOLUTION NEB SCH ×4 (00:30→19:14)
[2016-06-12] MEDS: ALBUTEROL SULFATE 2.5 MG/0.5 ML NEB SOLUTION NEB SCH ×4 (00:31→19:15)
[2016-06-12 03:33] VITALS: BP 115/63
[2016-06-12] MEDS: OxyCODONE HCL/ACETAMINOPHEN 5-325 MG TABLET PO PRN ×2 (03:33→08:00)
[2016-06-12 03:42] LABS: GLUCOSE COMMENT 1 Received Meds; GLUCOSE,POINT OF CARE 220 MG/DL (70-110)
[2016-06-12] MEDS: INSULIN ASPART 100 UNITS/ML SQ PRN ×4 (05:56→20:41)
[2016-06-12] MEDS: MethylPREDNISolone SOD SUCC 125 MG/2 ML VIAL IVP SCH ×4 (05:57→23:34)
[2016-06-12 07:35] VITALS: BP 124/78
[2016-06-12] MEDS: PANTOPRAZOLE SODIUM 40 MG DR TABLET PO SCH (07:59)
[2016-06-12] MEDS: ALPRAZolam 0.25 MG TABLET PO SCH ×3 (07:59→23:35)
[2016-06-12] MEDS: MONTELUKAST SODIUM 10 MG TABLET PO SCH (07:59)
[2016-06-12] MEDS: HEPARIN SODIUM,PORCINE 5,000 UNITS/ML VIAL SQ SCH ×3 (08:00→23:34)
[2016-06-12] MEDS: METOPROLOL SUCCINATE 50 MG ER TABLET PO SCH (08:00)
[2016-06-12] MEDS: PREGABALIN 75 MG CAPSULE PO SCH ×2 (08:00→20:35)
[2016-06-12] MEDS: TIOTROPIUM BROMIDE 18 MCG/INH HANDIHALER [5] IH SCH (08:00)
[2016-06-12] MEDS: BUDESONIDE 0.5 MG/2 ML NEB SOLUTION NEB SCH ×2 (08:03→19:14)
[2016-06-12] MEDS: INSULIN DETEMIR 100 UNITS/ML SQ SCH ×2 (08:07→20:39)
[2016-06-12 10:59] VITALS: BP 122/66
[2016-06-12 16:06] VITALS: BP 124/74
[2016-06-12] MEDS: OXYGEN THERAPY IH SCH (19:15)
[2016-06-12 20:00] VITALS: BP 109/48
[2016-06-12] MEDS: TraZODone HCL 100 MG TABLET PO SCH (20:34)
[2016-06-12] MEDS: LEVOFLOXACIN 500 MG/D5% WATER 100 ML IV SCH (20:34)
[2016-06-13] VITALS (7 sets, daily range): BP systolic 105–151; BP diastolic 61–82
[2016-06-13] MEDS: IPRATROPIUM BROMIDE 0.5 MG/2.5 ML NEB SOLUTION NEB SCH ×4 (02:52→19:43)
[2016-06-13] MEDS: ALBUTEROL SULFATE 2.5 MG/0.5 ML NEB SOLUTION NEB SCH ×4 (02:52→19:43)
[2016-06-13] MEDS: MethylPREDNISolone SOD SUCC 125 MG/2 ML VIAL IVP SCH ×3 (05:45→18:24)
[2016-06-13] MEDS: INSULIN ASPART 100 UNITS/ML SQ PRN ×4 (05:45→21:16)
[2016-06-13] MEDS: BUDESONIDE 0.5 MG/2 ML NEB SOLUTION NEB SCH ×2 (07:50→19:43)
[2016-06-13] MEDS: OXYGEN THERAPY IH SCH ×2 (07:51→21:01)
[2016-06-13] MEDS: PANTOPRAZOLE SODIUM 40 MG DR TABLET PO SCH (08:33)
[2016-06-13] MEDS: PREGABALIN 75 MG CAPSULE PO SCH ×2 (08:33→21:01)
[2016-06-13] MEDS: MONTELUKAST SODIUM 10 MG TABLET PO SCH (08:33)
[2016-06-13] MEDS: ALPRAZolam 0.25 MG TABLET PO SCH ×2 (08:33→16:10)
[2016-06-13] MEDS: METOPROLOL SUCCINATE 50 MG ER TABLET PO SCH (08:34)
[2016-06-13] MEDS: TIOTROPIUM BROMIDE 18 MCG/INH HANDIHALER [5] IH SCH (08:34)
[2016-06-13] MEDS: HEPARIN SODIUM,PORCINE 5,000 UNITS/ML VIAL SQ SCH ×2 (08:34→16:10)
[2016-06-13] MEDS: INSULIN DETEMIR 100 UNITS/ML SQ SCH ×2 (08:36→21:17)
[2016-06-13 13:16] LABS: GLUCOSE COMMENT 1 Received Meds; GLUCOSE,POINT OF CARE 357 MG/DL (70-110)
[2016-06-13 13:22] LABS: GLUCOSE COMMENT 1 Received Meds; GLUCOSE,POINT OF CARE 238 MG/DL (70-110)
[2016-06-13 13:22] LABS: GLUCOSE COMMENT 1 Received Meds; GLUCOSE,POINT OF CARE 213 MG/DL (70-110)
[2016-06-13] MEDS ORDERED: MORPHINE SULFATE 2 MG/ML SYRINGE IVP ONE (13:45)
[2016-06-13] MEDS ORDERED: MORPHINE SULFATE 2 MG/ML SYRINGE ONE (13:46)
[2016-06-13] MEDS ORDERED: SODIUM CHLORIDE 0.9% 250 ML IV ONE (20:35)
[2016-06-13] MEDS: LEVOFLOXACIN 500 MG/D5% WATER 100 ML IV SCH (21:01)
[2016-06-13] MEDS: OxyCODONE HCL/ACETAMINOPHEN 5-325 MG TABLET PO PRN (21:02)
[2016-06-13] MEDS: TraZODone HCL 100 MG TABLET PO SCH (22:56)
[2016-06-13] MEDS ORDERED: 0.9% SODIUM CHLORIDE 5 ML NEB SOLUTION NEB ONE (23:14)
[2016-06-13] MEDS: ALBUTEROL SULFATE 2.5 MG/0.5 ML NEB SOLUTION NEB PRN (23:15)
[2016-06-13 23:21] LABS: GLUCOSE COMMENT 1 Received Meds; GLUCOSE,POINT OF CARE 262 MG/DL (70-110)
[2016-06-14] VITALS (7 sets, daily range): BP systolic 106–139; BP diastolic 55–99
[2016-06-14] MEDS: MethylPREDNISolone SOD SUCC 125 MG/2 ML VIAL IVP SCH ×4 (00:48→18:26)
[2016-06-14] MEDS: HEPARIN SODIUM,PORCINE 5,000 UNITS/ML VIAL SQ SCH ×3 (00:49→16:48)
[2016-06-14] MEDS: ALPRAZolam 0.25 MG TABLET PO SCH ×2 (00:49→08:26)
[2016-06-14] MEDS: ALBUTEROL SULFATE 2.5 MG/0.5 ML NEB SOLUTION NEB SCH ×4 (02:33→20:05)
[2016-06-14] MEDS: IPRATROPIUM BROMIDE 0.5 MG/2.5 ML NEB SOLUTION NEB SCH ×4 (02:33→20:05)
[2016-06-14] MEDS: INSULIN ASPART 100 UNITS/ML SQ PRN ×4 (06:18→20:50)
[2016-06-14] MEDS: BUDESONIDE 0.5 MG/2 ML NEB SOLUTION NEB SCH ×2 (07:45→20:19)
[2016-06-14] MEDS: OXYGEN THERAPY IH SCH ×2 (07:46→20:05)
[2016-06-14] MEDS: METOPROLOL SUCCINATE 50 MG ER TABLET PO SCH (08:26)
[2016-06-14] MEDS: MONTELUKAST SODIUM 10 MG TABLET PO SCH (08:26)
[2016-06-14] MEDS: PANTOPRAZOLE SODIUM 40 MG DR TABLET PO SCH (08:26)
[2016-06-14] MEDS: PREGABALIN 75 MG CAPSULE PO SCH ×3 (08:26→20:28)
[2016-06-14] MEDS: TIOTROPIUM BROMIDE 18 MCG/INH HANDIHALER [5] IH SCH (08:27)
[2016-06-14] MEDS: OxyCODONE HCL/ACETAMINOPHEN 5-325 MG TABLET PO PRN ×2 (08:27→16:48)
[2016-06-14] MEDS: INSULIN DETEMIR 100 UNITS/ML SQ SCH ×2 (08:32→20:50)
[2016-06-14] MEDS: LEVOFLOXACIN 500 MG/D5% WATER 100 ML IV SCH (20:28)
[2016-06-14] MEDS ORDERED: MIRTAZAPINE 15 MG TABLET PO SCH (21:00)
[2016-06-15] MEDS: MethylPREDNISolone SOD SUCC 125 MG/2 ML VIAL IVP SCH ×3 (00:08→12:02)
[2016-06-15] MEDS: HEPARIN SODIUM,PORCINE 5,000 UNITS/ML VIAL SQ SCH ×3 (00:09→16:21)
[2016-06-15] MEDS: IPRATROPIUM BROMIDE 0.5 MG/2.5 ML NEB SOLUTION NEB SCH ×4 (02:22→19:51)
[2016-06-15] MEDS: ALBUTEROL SULFATE 2.5 MG/0.5 ML NEB SOLUTION NEB SCH ×4 (02:22→19:51)
[2016-06-15 03:16] LABS: GLUCOSE COMMENT 1 Received Meds; GLUCOSE,POINT OF CARE 220 MG/DL (70-110)
[2016-06-15 04:43] VITALS: BP 114/65
[2016-06-15] MEDS: INSULIN ASPART 100 UNITS/ML SQ PRN ×3 (06:14→17:21)
[2016-06-15 07:33] VITALS: BP 133/65
[2016-06-15] MEDS: OXYGEN THERAPY IH SCH ×2 (08:27→19:57)
[2016-06-15] MEDS: INSULIN DETEMIR 100 UNITS/ML SQ SCH (08:34)
[2016-06-15] MEDS: BUDESONIDE 0.5 MG/2 ML NEB SOLUTION NEB SCH ×2 (08:38→20:07)
[2016-06-15] MEDS ORDERED: DULoxetine HCL 20 MG CAPSULE PO SCH (09:00)
[2016-06-15 12:08] VITALS: BP 111/61
[2016-06-15] MEDS: PREGABALIN 75 MG CAPSULE PO SCH ×2 (13:09→16:18)
[2016-06-15] MEDS: MONTELUKAST SODIUM 10 MG TABLET PO SCH (13:09)
[2016-06-15] MEDS: PANTOPRAZOLE SODIUM 40 MG DR TABLET PO SCH (13:09)
[2016-06-15] MEDS: TIOTROPIUM BROMIDE 18 MCG/INH HANDIHALER [5] IH SCH (13:09)
[2016-06-15] MEDS: METOPROLOL SUCCINATE 50 MG ER TABLET PO SCH (14:30)
[2016-06-15 17:06] VITALS: BP 119/69
[2016-06-15] MEDS: OxyCODONE HCL/ACETAMINOPHEN 5-325 MG TABLET PO PRN (17:24)
[2016-06-15 17:32] LABS: ANION GAP 4 mmol/L (8-16); CALCIUM, TOTAL 7.8 mg/dL (8.8-10.5); CARBON DIOXIDE 34 mmol/L (22-29); CHLORIDE 105 mmol/L (98-107); CREATININE 1.28 mg/dL (0.60-1.30); GLOMERULAR FILTR. RATE CALC > 60 mL/min (>60); POTASSIUM 5.4 mmol/L (3.5-5.1); SODIUM SERUM 143 mmol/L (136-145); UREA NITROGEN, BLOOD 38 mg/dL (7-18)
[2016-06-15] MEDS ORDERED: MethylPREDNISolone SOD SUCC 40 MG/ML VIAL IVP SCH (18:00)
[2016-06-15] MEDS: LEVOFLOXACIN 500 MG/D5% WATER 100 ML IV SCH (20:15)
[2016-06-15] MEDS ORDERED: MIRTAZAPINE 15 MG TABLET PO SCH (21:00)
[2016-06-16 08:02] LABS: GLUCOSE COMMENT 1 Received Meds; GLUCOSE,POINT OF CARE 164 MG/DL (70-110)
[2016-06-16] MEDS ORDERED: PredniSONE 20 MG TABLET PO SCH (09:00)
[2016-06-20 04:22] LABS: GLUCOSE COMMENT 1 Received Meds; GLUCOSE,POINT OF CARE 263 MG/DL (70-110)
[2016-06-20 04:22] LABS: GLUCOSE COMMENT 1 Received Meds; GLUCOSE,POINT OF CARE 373 MG/DL (70-110)
[2016-06-20 04:26] LABS: GLUCOSE COMMENT 1 Received Meds; GLUCOSE,POINT OF CARE 379 MG/DL (70-110)
[2016-06-20 04:27] LABS: GLUCOSE COMMENT 1 Received Meds; GLUCOSE,POINT OF CARE 372 MG/DL (70-110)
[2016-06-20 04:27] LABS: GLUCOSE COMMENT 1 Received Meds; GLUCOSE,POINT OF CARE 269 MG/DL (70-110)
[2016-06-20 04:27] LABS: GLUCOSE COMMENT 1 Received Meds; GLUCOSE,POINT OF CARE 296 MG/DL (70-110)
[2016-06-20 04:32] LABS: GLUCOSE,POINT OF CARE 155 MG/DL (70-110)
[2016-06-20 04:32] LABS: GLUCOSE COMMENT 1 Received Meds; GLUCOSE,POINT OF CARE 170 MG/DL (70-110)
[2016-06-20 04:32] LABS: GLUCOSE COMMENT 1 Received Meds; GLUCOSE,POINT OF CARE 309 MG/DL (70-110)
[2016-07-01 16:43] LABS: GLUCOSE COMMENT 1 Received Meds; GLUCOSE,POINT OF CARE 293 MG/DL (70-110)
[2016-07-01 16:43] LABS: GLUCOSE COMMENT 1 Received Meds; GLUCOSE,POINT OF CARE 283 MG/DL (70-110)
[2016-07-01 16:43] LABS: GLUCOSE COMMENT 1 Received Meds; GLUCOSE,POINT OF CARE 311 MG/DL (70-110)
[2016-07-01 16:43] LABS: GLUCOSE COMMENT 1 Received Meds; GLUCOSE,POINT OF CARE 287 MG/DL (70-110)
[2016-07-01 16:44] LABS: GLUCOSE COMMENT 1 Received Meds; GLUCOSE,POINT OF CARE 308 MG/DL (70-110)
[2016-07-01 16:44] LABS: GLUCOSE,POINT OF CARE 381 MG/DL (70-110)
[2016-07-01 16:44] LABS: GLUCOSE COMMENT 1 Received Meds; GLUCOSE,POINT OF CARE 293 MG/DL (70-110)
[2016-07-01 16:44] LABS: GLUCOSE COMMENT 1 Received Meds; GLUCOSE,POINT OF CARE 275 MG/DL (70-110)
[2016-07-01 16:44] LABS: GLUCOSE COMMENT 1 Received Meds; GLUCOSE,POINT OF CARE 245 MG/DL (70-110)
== END 2016-06-15 21:05 | DRG 189 ==
LOC: EMS 13:18 → 5S 15:10 → 5N 06-06 18:20 → 5S 06-08 17:15
PROVIDERS: ADMIT Hospitalist; ATTEND Hospitalist
PROC: 5A09457 Assistance with Respiratory Ventilation, 24-96 Consecutive Hours, Continuous Positive Airway Pressure (ICD-10-PCS; principal; 2016-06-05)
DX: J96.02 Acute respiratory failure with hypercapnia (principal); E43 Unspecified severe protein-calorie malnutrition; J44.1 Chronic obstructive pulmonary disease with (acute) exacerbation; I50.22 Chronic systolic (congestive) heart failure; E66.2 Morbid (severe) obesity with alveolar hypoventilation; I13.0 Hypertensive heart and chronic kidney disease with heart failure and stage 1 through stage 4 chronic kidney disease, or unspecified chronic kidney disease; I45.2 Bifascicular block; F33.9 Major depressive disorder, recurrent, unspecified; J44.0 Chronic obstructive pulmonary disease with (acute) lower respiratory infection; E11.22 Type 2 diabetes mellitus with diabetic chronic kidney disease; D64.9 Anemia, unspecified; E78.00 Pure hypercholesterolemia, unspecified; E78.5 Hyperlipidemia, unspecified; F14.10 Cocaine abuse, uncomplicated; F41.0 Panic disorder [episodic paroxysmal anxiety]; J20.9 Acute bronchitis, unspecified; K21.9 Gastro-esophageal reflux disease without esophagitis; J45.909 Unspecified asthma, uncomplicated; N18.9 Chronic kidney disease, unspecified; Z87.891 Personal history of nicotine dependence; Z91.19 Patient's noncompliance with other medical treatment and regimen; Z95.1 Presence of aortocoronary bypass graft; Z99.81 Dependence on supplemental oxygen; Z79.899 Other long term (current) drug therapy; Z79.4 Long term (current) use of insulin; Z68.29 Body mass index [BMI] 29.0-29.9, adult
CPT/HCPCS: 80307; 82805; 82962; 83735; 84100; 84132; 84295; 84443; 87040; 87081; 93005; 93306; 94640; 94644; 94660; 96374; 97110; 97116; 97162; 97163; 97166; 97530; 97535; 99291; J1644; J1815; J1956; J2270; J2405; J2920; J2930; J7050

== ENCOUNTER 2016-07-11 05:33 | Inpatient (IN) | payer MEDICARE ==
[~2016-07-11] VITALS: Ht 180.3 cm; Wt 86.0 kg
[2016-07-11 05:48] LABS: GLUCOSE,POINT OF CARE 122 MG/DL (70-110)
[2016-07-11] MEDS ORDERED: HEPA500035 SQ (05:55)
[2016-07-11] MEDS ORDERED: DULO20CA30 PO (05:55)
[2016-07-11] MEDS ORDERED: MIRT15 PO (05:55)
[2016-07-11] MEDS ORDERED: METO-325 PO (05:55)
[2016-07-11] MEDS ORDERED: IPRNEB IH (05:55)
[2016-07-11 06:05] LABS: BASOPHILS # (AUTO) 0.02 K/uL (0.00-0.20); BASOPHILS % (AUTO) 0.1 % (0.0-2.0); EOSINOPHILS # (AUTO) 0.01 K/uL (0.00-0.70); EOSINOPHILS % (AUTO) 0.06 % (1.0-6.0); HEMATOCRIT 37.1 % (41-53); HEMOGLOBIN 12.1 g/dL (13.5-17.5); LYMPHOCYTES # (AUTO) 2.1 K/uL (1.0-4.8); LYMPHOCYTES % (AUTO) 10.3 % (22.0-44.0); MEAN CORPUSCULAR HEMOGLOBIN 29.3 pg (26.0-34.0); MEAN CORPUSCULAR HGB CONC 32.7 G/dL (31.0-37.0); MEAN CORPUSCULAR VOLUME 90 fL (80-100); MONOCYTES # (AUTO) 0.6 K/uL (0.1-1.0); MONOCYTES % (AUTO) 2.9 % (2.0-9.0); NEUTROPHILS # (AUTO) 17.5 K/uL (1.8-7.7); PLATELET COUNT (AUTO) 210 K/uL (150-450); RED BLOOD CELL COUNT(AUTO) 4.15 MIL/uL (4.50-5.90); RED CELL DISTRIBUTION WIDTH 17.4 % (11.5-14.5); WHITE BLOOD COUNT (AUTO) 20.2 K/uL (4.5-11.0)
[2016-07-11 06:09] LABS: NEUTROPHILS % (AUTO) 86.6 % (40.0-70.0)
[2016-07-11 06:18] LABS: ANION GAP 6 mmol/L (8-16); CALCIUM, TOTAL 8.8 mg/dL (8.8-10.5); CARBON DIOXIDE 35 mmol/L (22-29); CHLORIDE 99 mmol/L (98-107); GLOMERULAR FILTR. RATE CALC > 60 mL/min (>60); POTASSIUM 4.8 mmol/L (3.5-5.1); SODIUM SERUM 140 mmol/L (136-145); UREA NITROGEN, BLOOD 17 mg/dL (7-18)
[2016-07-11 06:23] LABS: ALANINE AMINOTRANSFERASE 40 U/L (12-78); ALBUMIN 2.4 g/dL (3.4-5.0); ASPARTATE AMINOTRANSFERASE 27 U/L (15-37); BILIRUBIN,TOTAL 0.6 mg/dL (0.1-1.0); TOTAL PROTEIN, SERUM 7.5 g/dL (6.4-8.2)
[2016-07-11 06:29] LABS: B-TYPE NATRIURETIC PEPTIDE 95 pg/mL (0-100)
[2016-07-11 06:36] LABS: RBC MORPHOLOGY COMMENT ABNORMAL RBC MORPH
[2016-07-11 06:53] LABS: TEMPERATURE, FAHRENHEIT, BG 99.5 FAHREN (96.0-98.6)
[2016-07-11 07:12] LABS: ABG A-A DIFF O2 202.8 mmHg (10-20.0); ABG BASE EXCESS 5.8 mmol/L (-2.0-3.0); ABG HCO3 28.6 mmol/L (22.0-26.0); ABG OXYHEMOGLOBIN 94.5 % (94.0-100.0); ABG PCO2 53 mmHg (35-45); ABG PH 7.384 (7.35-7.450); ALLEN TEST, BLOOD GAS Positive
[2016-07-11 07:13] LABS: IPAP, BG 15 cm H2O
[2016-07-11] MEDS ORDERED: AZITHROMYCIN 500 MG/NS 250 ML IV ONE (07:15)
[2016-07-11] MEDS ORDERED: CefTRIAXone 1 GM/DEXTROSE 50 ML IV ONE (07:15)
[2016-07-11] MEDS ORDERED: FUROSEMIDE 40 MG/4 ML VIAL IVP ONE ×2 (07:15→16:15)
[2016-07-11 09:53] VITALS: BP 109/61
[2016-07-11 11:23] VITALS: BP 112/65
[2016-07-11] MEDS ORDERED: ACETAMINOPHEN 325 MG TABLET PO PRN ×2 (15:15→16:15)
[2016-07-11 15:23] VITALS: BP 110/67
[2016-07-11] MEDS ORDERED: MAGNESIUM HYDROXIDE SUSPENSION 30 ML UDCUP PO PRN (16:15)
[2016-07-11] MEDS ORDERED: ZOLPIDEM TARTRATE 5 MG TABLET PO PRN (16:15)
[2016-07-11] MEDS ORDERED: ONDANSETRON HCL 4 MG/2 ML VIAL IVP PRN (16:15)
[2016-07-11] MEDS ORDERED: IPRATROPIUM BROMIDE 0.5 MG/2.5 ML NEB SOLUTION NEB PRN (16:15)
[2016-07-11] MEDS ORDERED: BISACODYL 10 MG RECTAL RECTAL SUPPOSITORY PR PRN (16:15)
[2016-07-11] MEDS ORDERED: ALBUTEROL SULFATE 2.5 MG/0.5 ML NEB SOLUTION NEB PRN (16:15)
[2016-07-11] MEDS ORDERED: SODIUM CHLORIDE 0.9% 500 ML IV ONE (18:13)
[2016-07-11] MEDS: MethylPREDNISolone SOD SUCC 125 MG/2 ML VIAL IVP SCH (18:18)
[2016-07-11] MEDS: LEVOFLOXACIN 500 MG/D5% WATER 100 ML IV SCH (18:18)
[2016-07-11 19:37] LABS: CREATINE KINASE, TOTAL 51 U/L (39-308)
[2016-07-11] MEDS: ALBUTEROL SULFATE 2.5 MG/0.5 ML NEB SOLUTION NEB SCH (19:43)
[2016-07-11] MEDS: IPRATROPIUM BROMIDE 0.5 MG/2.5 ML NEB SOLUTION NEB SCH (19:43)
[2016-07-11 19:48] VITALS: BP 105/68
[2016-07-11] MEDS: FUROSEMIDE 20 MG/2 ML VIAL IVP SCH (22:12)
[2016-07-11] MEDS: PREGABALIN 75 MG CAPSULE PO SCH (22:12)
[2016-07-11] MEDS: MIRTAZAPINE 15 MG TABLET PO SCH (22:12)
[2016-07-11] MEDS: DOCUSATE SODIUM 100 MG CAPSULE PO SCH (22:13)
[2016-07-11] MEDS: INSULIN DETEMIR 100 UNITS/ML SQ SCH (22:14)
[2016-07-11] MEDS: MORPHINE SULFATE 2 MG/ML SYRINGE IVP PRN (23:24)
[2016-07-12] MEDS: ALBUTEROL SULFATE 2.5 MG/0.5 ML NEB SOLUTION NEB SCH ×7 (00:03→22:50)
[2016-07-12] MEDS: BUDESONIDE 0.5 MG/2 ML NEB SOLUTION NEB SCH ×3 (00:04→19:07)
[2016-07-12] MEDS: IPRATROPIUM BROMIDE 0.5 MG/2.5 ML NEB SOLUTION NEB SCH ×7 (00:04→22:50)
[2016-07-12] MEDS: MethylPREDNISolone SOD SUCC 125 MG/2 ML VIAL IVP SCH ×4 (00:06→17:26)
[2016-07-12] MEDS: HEPARIN SODIUM,PORCINE 5,000 UNITS/ML VIAL SQ SCH ×3 (00:06→15:08)
[2016-07-12 00:11] VITALS: BP 109/62
[2016-07-12 02:15] LABS: CREATINE KINASE, TOTAL 45 U/L (39-308)
[2016-07-12] MEDS: HYDROCODONE/ACETAMINOPHEN 5-325 MG TABLET PO PRN ×4 (02:46→20:48)
[2016-07-12] MEDS ORDERED: DEXTROSE 50%-WATER 25 GM/50 ML SYRINGE IVP PRN (05:30)
[2016-07-12] MEDS: INSULIN ASPART 100 UNITS/ML SQ PRN ×4 (05:30→20:54)
[2016-07-12] MEDS: MORPHINE SULFATE 2 MG/ML SYRINGE IVP PRN (06:03)
[2016-07-12 06:09] VITALS: BP 133/73
[2016-07-12 06:23] LABS: EOSINOPHILS % (AUTO) 0 % (1.0-6.0); HEMATOCRIT 37.9 % (41-53); LYMPHOCYTES # (AUTO) 0.4 K/uL (1.0-4.8); LYMPHOCYTES % (AUTO) 2.8 % (22.0-44.0); MEAN CORPUSCULAR HEMOGLOBIN 28.4 pg (26.0-34.0); MEAN CORPUSCULAR HGB CONC 31.6 G/dL (31.0-37.0); MEAN CORPUSCULAR VOLUME 90 fL (80-100); MONOCYTES # (AUTO) 0.2 K/uL (0.1-1.0); MONOCYTES % (AUTO) 1.8 % (2.0-9.0); PLATELET COUNT (AUTO) 149 K/uL (150-450); RED BLOOD CELL COUNT(AUTO) 4.22 MIL/uL (4.50-5.90); RED CELL DISTRIBUTION WIDTH 16.5 % (11.5-14.5); WHITE BLOOD COUNT (AUTO) 12.5 K/uL (4.5-11.0)
[2016-07-12] MEDS: INSULIN DETEMIR 100 UNITS/ML SQ SCH ×2 (06:27→20:54)
[2016-07-12 07:16] LABS: CALCIUM, TOTAL 8.6 mg/dL (8.8-10.5); CREATININE 1.7 mg/dL (0.60-1.30); MAGNESIUM 2.1 mg/dL (1.80-2.40); PHOSPHORUS 4.7 mg/dL (2.5-4.9); POTASSIUM 5.1 mmol/L (3.5-5.1)
[2016-07-12 07:24] LABS: NEUTROPHILS % (AUTO) 95.4 % (40.0-70.0)
[2016-07-12 07:29] VITALS: BP 126/77
[2016-07-12] MEDS: PANTOPRAZOLE SODIUM 40 MG/VIAL IVP SCH (08:23)
[2016-07-12] MEDS: FUROSEMIDE 20 MG/2 ML VIAL IVP SCH ×2 (08:23→20:46)
[2016-07-12] MEDS: MONTELUKAST SODIUM 10 MG TABLET PO SCH (08:24)
[2016-07-12] MEDS: DULoxetine HCL 20 MG CAPSULE PO SCH (08:24)
[2016-07-12] MEDS: DOCUSATE SODIUM 100 MG CAPSULE PO SCH ×2 (08:24→20:47)
[2016-07-12] MEDS: PREGABALIN 75 MG CAPSULE PO SCH ×3 (08:24→20:48)
[2016-07-12 10:33] LABS: CREATINE KINASE, TOTAL 36 U/L (39-308)
[2016-07-12 11:42] VITALS: BP 140/86
[2016-07-12] MEDS ORDERED: INSULIN ASPART 100 UNITS/ML SQ ONE (14:15)
[2016-07-12 15:52] VITALS: BP 127/76
[2016-07-12] MEDS: LEVOFLOXACIN 500 MG/D5% WATER 100 ML IV SCH (17:25)
[2016-07-12 19:19] VITALS: BP 155/95
[2016-07-12] MEDS: MIRTAZAPINE 15 MG TABLET PO SCH (20:47)
[2016-07-13] VITALS (7 sets, daily range): BP systolic 120–141; BP diastolic 68–81
[2016-07-13] MEDS: MethylPREDNISolone SOD SUCC 125 MG/2 ML VIAL IVP SCH ×3 (00:14→11:54)
[2016-07-13] MEDS: CALCIUM CARBONATE 500 MG CHEWABLE TABLET CHEW PRN ×3 (00:15→22:26)
[2016-07-13] MEDS: HEPARIN SODIUM,PORCINE 5,000 UNITS/ML VIAL SQ SCH ×3 (00:15→15:48)
[2016-07-13] MEDS: HYDROCODONE/ACETAMINOPHEN 5-325 MG TABLET PO PRN ×2 (02:08→15:48)
[2016-07-13] MEDS: IPRATROPIUM BROMIDE 0.5 MG/2.5 ML NEB SOLUTION NEB SCH ×6 (03:37→23:11)
[2016-07-13] MEDS: ALBUTEROL SULFATE 2.5 MG/0.5 ML NEB SOLUTION NEB SCH ×6 (03:37→23:11)
[2016-07-13] MEDS: INSULIN ASPART 100 UNITS/ML SQ PRN ×4 (05:57→20:32)
[2016-07-13 07:11] LABS: ABG A-A DIFF O2 51.6 mmHg (10-20.0); ABG HCO3 29.5 mmol/L (22.0-26.0); ABG PCO2 59 mmHg (35-45); ABG PH 7.356 (7.35-7.450); ALLEN TEST, BLOOD GAS Positive; TEMPERATURE, FAHRENHEIT, BG 98.6 FAHREN (96.0-98.6)
[2016-07-13] MEDS: BUDESONIDE 0.5 MG/2 ML NEB SOLUTION NEB SCH ×2 (07:45→19:32)
[2016-07-13] MEDS: DULoxetine HCL 20 MG CAPSULE PO SCH (09:03)
[2016-07-13] MEDS: PREGABALIN 75 MG CAPSULE PO SCH ×3 (09:03→20:30)
[2016-07-13] MEDS: DOCUSATE SODIUM 100 MG CAPSULE PO SCH ×2 (09:03→20:26)
[2016-07-13] MEDS: MONTELUKAST SODIUM 10 MG TABLET PO SCH (09:04)
[2016-07-13] MEDS: FUROSEMIDE 20 MG/2 ML VIAL IVP SCH ×2 (09:14→20:25)
[2016-07-13] MEDS: PANTOPRAZOLE SODIUM 40 MG/VIAL IVP SCH (09:19)
[2016-07-13] MEDS: INSULIN DETEMIR 100 UNITS/ML SQ SCH ×2 (09:24→20:31)
[2016-07-13] MEDS: MethylPREDNISolone SOD SUCC 40 MG/ML VIAL IVP SCH (17:18)
[2016-07-13] MEDS: LEVOFLOXACIN 500 MG/D5% WATER 100 ML IV SCH (17:18)
[2016-07-13] MEDS: MIRTAZAPINE 15 MG TABLET PO SCH (20:30)
[2016-07-13] MEDS: MORPHINE SULFATE 2 MG/ML SYRINGE IVP PRN (21:38)
[2016-07-13] MEDS: DILTIAZEM HCL 125 MG in DEXTROSE 5%-WATER 100 ML IV SCH (21:57)
[2016-07-14] VITALS (7 sets, daily range): BP systolic 116–146; BP diastolic 67–90
[2016-07-14] MEDS: MethylPREDNISolone SOD SUCC 40 MG/ML VIAL IVP SCH ×4 (00:34→17:25)
[2016-07-14] MEDS: HEPARIN SODIUM,PORCINE 5,000 UNITS/ML VIAL SQ SCH ×3 (00:34→16:37)
[2016-07-14] MEDS: IPRATROPIUM BROMIDE 0.5 MG/2.5 ML NEB SOLUTION NEB SCH ×6 (04:18→22:58)
[2016-07-14] MEDS: ALBUTEROL SULFATE 2.5 MG/0.5 ML NEB SOLUTION NEB SCH (04:18)
[2016-07-14] MEDS: INSULIN ASPART 100 UNITS/ML SQ PRN ×3 (05:55→20:58)
[2016-07-14] MEDS: NITROGLYCERIN 2% (1 GM=INCH) PACKET TP SCH ×2 (09:06→16:37)
[2016-07-14] MEDS: PANTOPRAZOLE SODIUM 40 MG/VIAL IVP SCH (09:07)
[2016-07-14] MEDS: DOCUSATE SODIUM 100 MG CAPSULE PO SCH ×2 (09:07→20:56)
[2016-07-14] MEDS: DILTIAZEM HCL CD 180 MG ER CAPSULE PO SCH ×2 (09:07→20:56)
[2016-07-14] MEDS: FUROSEMIDE 20 MG/2 ML VIAL IVP SCH ×2 (09:07→20:56)
[2016-07-14] MEDS: PREGABALIN 75 MG CAPSULE PO SCH ×3 (09:08→20:56)
[2016-07-14] MEDS: METOPROLOL SUCCINATE 25 MG ER TABLET PO SCH ×2 (09:08→20:56)
[2016-07-14] MEDS: ASPIRIN 81 MG EC TABLET PO SCH (09:08)
[2016-07-14] MEDS: MONTELUKAST SODIUM 10 MG TABLET PO SCH (09:08)
[2016-07-14] MEDS: DULoxetine HCL 20 MG CAPSULE PO SCH (09:09)
[2016-07-14] MEDS: PRAVASTATIN SODIUM 20 MG TABLET PO SCH (09:12)
[2016-07-14] MEDS: INSULIN DETEMIR 100 UNITS/ML SQ SCH ×2 (09:14→20:58)
[2016-07-14 09:48] LABS: BASOPHILS % (AUTO) 0.4 % (0.0-2.0); EOSINOPHILS % (AUTO) 0 % (1.0-6.0); HEMATOCRIT 32.9 % (41-53); HEMOGLOBIN 10.5 g/dL (13.5-17.5); LYMPHOCYTES # (AUTO) 0.5 K/uL (1.0-4.8); LYMPHOCYTES % (AUTO) 2.9 % (22.0-44.0); MEAN CORPUSCULAR HEMOGLOBIN 28.6 pg (26.0-34.0); MEAN CORPUSCULAR HGB CONC 31.9 G/dL (31.0-37.0); MEAN CORPUSCULAR VOLUME 90 fL (80-100); MONOCYTES # (AUTO) 0.5 K/uL (0.1-1.0); MONOCYTES % (AUTO) 2.7 % (2.0-9.0); NEUTROPHILS # (AUTO) 16.6 K/uL (1.8-7.7); PLATELET COUNT (AUTO) 153 K/uL (150-450); RED BLOOD CELL COUNT(AUTO) 3.66 MIL/uL (4.50-5.90); RED CELL DISTRIBUTION WIDTH 16.3 % (11.5-14.5); WHITE BLOOD COUNT (AUTO) 17.7 K/uL (4.5-11.0)
[2016-07-14 10:07] LABS: CALCIUM, TOTAL 9.1 mg/dL (8.8-10.5); CREATININE 1.42 mg/dL (0.60-1.30); POTASSIUM 5.3 mmol/L (3.5-5.1)
[2016-07-14] MEDS: BUDESONIDE 0.5 MG/2 ML NEB SOLUTION NEB SCH ×2 (12:05→19:16)
[2016-07-14] MEDS: HYDROCODONE/ACETAMINOPHEN 5-325 MG TABLET PO PRN (12:14)
[2016-07-14] MEDS ORDERED: INSULIN ASPART 100 UNITS/ML SQ ONE (12:15)
[2016-07-14] MEDS ORDERED: IPRATROPIUM BROMIDE 0.5 MG/2.5 ML NEB SOLUTION NEB SCH (14:00)
[2016-07-14] MEDS: LEVOFLOXACIN 500 MG/D5% WATER 100 ML IV SCH (17:20)
[2016-07-14] MEDS: MIRTAZAPINE 15 MG TABLET PO SCH (20:56)
[2016-07-14] MEDS: MORPHINE SULFATE 2 MG/ML SYRINGE IVP PRN (21:03)
[2016-07-14] MEDS: DILTIAZEM HCL 125 MG in DEXTROSE 5%-WATER 100 ML IV SCH (21:53)
[2016-07-15] MEDS: HEPARIN SODIUM,PORCINE 5,000 UNITS/ML VIAL SQ SCH ×3 (00:17→15:50)
[2016-07-15] MEDS: NITROGLYCERIN 2% (1 GM=INCH) PACKET TP SCH ×3 (00:17→15:50)
[2016-07-15] MEDS: MethylPREDNISolone SOD SUCC 40 MG/ML VIAL IVP SCH ×2 (00:18→06:18)
[2016-07-15] MEDS: IPRATROPIUM BROMIDE 0.5 MG/2.5 ML NEB SOLUTION NEB SCH ×6 (01:47→22:46)
[2016-07-15] MEDS: MORPHINE SULFATE 2 MG/ML SYRINGE IVP PRN ×2 (04:10→21:52)
[2016-07-15 05:12] VITALS: BP 112/58
[2016-07-15] MEDS: INSULIN ASPART 100 UNITS/ML SQ PRN ×4 (06:20→21:50)
[2016-07-15 07:11] VITALS: BP 121/69
[2016-07-15 07:15] LABS: BASOPHILS # (AUTO) 0.01 K/uL (0.00-0.20); BASOPHILS % (AUTO) 0.1 % (0.0-2.0); EOSINOPHILS % (AUTO) 0.03 % (1.0-6.0); HEMATOCRIT 32.5 % (41-53); HEMOGLOBIN 10.5 g/dL (13.5-17.5); LYMPHOCYTES # (AUTO) 0.8 K/uL (1.0-4.8); LYMPHOCYTES % (AUTO) 5.2 % (22.0-44.0); MEAN CORPUSCULAR HGB CONC 32.4 G/dL (31.0-37.0); MEAN CORPUSCULAR VOLUME 89 fL (80-100); MONOCYTES # (AUTO) 0.2 K/uL (0.1-1.0); MONOCYTES % (AUTO) 1.4 % (2.0-9.0); NEUTROPHILS # (AUTO) 14.8 K/uL (1.8-7.7); PLATELET COUNT (AUTO) 162 K/uL (150-450); RED BLOOD CELL COUNT(AUTO) 3.64 MIL/uL (4.50-5.90); RED CELL DISTRIBUTION WIDTH 16.3 % (11.5-14.5); WHITE BLOOD COUNT (AUTO) 15.8 K/uL (4.5-11.0)
[2016-07-15 07:23] LABS: NEUTROPHILS % (AUTO) 93.2 % (40.0-70.0)
[2016-07-15 07:30] LABS: ALBUMIN 2.4 g/dL (3.4-5.0); BILIRUBIN,TOTAL 0.3 mg/dL (0.1-1.0); CREATININE 1.5 mg/dL (0.60-1.30); MAGNESIUM 2.3 mg/dL (1.80-2.40); POTASSIUM 5.3 mmol/L (3.5-5.1); TOTAL PROTEIN, SERUM 7.3 g/dL (6.4-8.2)
[2016-07-15] MEDS: BUDESONIDE 0.5 MG/2 ML NEB SOLUTION NEB SCH ×2 (08:27→20:46)
[2016-07-15] MEDS: PANTOPRAZOLE SODIUM 40 MG/VIAL IVP SCH (08:58)
[2016-07-15] MEDS: DILTIAZEM HCL CD 180 MG ER CAPSULE PO SCH ×2 (08:58→21:45)
[2016-07-15] MEDS: PREGABALIN 75 MG CAPSULE PO SCH ×3 (08:58→21:46)
[2016-07-15] MEDS: DOCUSATE SODIUM 100 MG CAPSULE PO SCH ×2 (08:58→21:45)
[2016-07-15] MEDS: FUROSEMIDE 20 MG/2 ML VIAL IVP SCH ×2 (08:58→21:44)
[2016-07-15] MEDS: MONTELUKAST SODIUM 10 MG TABLET PO SCH (08:59)
[2016-07-15] MEDS: ASPIRIN 81 MG EC TABLET PO SCH (08:59)
[2016-07-15] MEDS: DULoxetine HCL 20 MG CAPSULE PO SCH (08:59)
[2016-07-15] MEDS: PredniSONE 20 MG TABLET PO SCH (08:59)
[2016-07-15] MEDS: PRAVASTATIN SODIUM 20 MG TABLET PO SCH (09:02)
[2016-07-15] MEDS: INSULIN DETEMIR 100 UNITS/ML SQ SCH ×2 (09:09→21:50)
[2016-07-15 09:28] LABS: ABG A-A DIFF O2 61.1 mmHg (10-20.0); ABG BASE EXCESS 4.7 mmol/L (-2.0-3.0); ABG HCO3 27.6 mmol/L (22.0-26.0); ABG OXYHEMOGLOBIN 92.7 % (94.0-100.0); ABG PCO2 56 mmHg (35-45); ABG PH 7.354 (7.35-7.450); TEMPERATURE, FAHRENHEIT, BG 97.9 FAHREN (96.0-98.6)
[2016-07-15 09:30] LABS: ALLEN TEST, BLOOD GAS Positive; IPAP, BG 18 cm H2O
[2016-07-15 11:22] VITALS: BP 110/77
[2016-07-15 15:06] VITALS: BP 123/76
[2016-07-15] MEDS: LEVOFLOXACIN 500 MG/D5% WATER 100 ML IV SCH (17:11)
[2016-07-15 19:39] VITALS: BP 151/76
[2016-07-15] MEDS: MIRTAZAPINE 15 MG TABLET PO SCH (21:45)
[2016-07-15 23:42] VITALS: BP 130/88
[2016-07-16] MEDS: NITROGLYCERIN 2% (1 GM=INCH) PACKET TP SCH ×3 (00:24→17:53)
[2016-07-16] MEDS: HEPARIN SODIUM,PORCINE 5,000 UNITS/ML VIAL SQ SCH ×3 (00:24→17:52)
[2016-07-16] MEDS: MORPHINE SULFATE 2 MG/ML SYRINGE IVP PRN ×3 (00:49→20:53)
[2016-07-16] MEDS: IPRATROPIUM BROMIDE 0.5 MG/2.5 ML NEB SOLUTION NEB SCH ×6 (02:52→23:43)
[2016-07-16 05:45] VITALS: BP 116/73
[2016-07-16] MEDS: INSULIN ASPART 100 UNITS/ML SQ PRN ×3 (06:12→20:53)
[2016-07-16 06:52] LABS: BASOPHILS % (AUTO) 0.1 % (0.0-2.0); EOSINOPHILS % (AUTO) 0 % (1.0-6.0); HEMATOCRIT 34.8 % (41-53); HEMOGLOBIN 11.2 g/dL (13.5-17.5); LYMPHOCYTES # (AUTO) 1.3 K/uL (1.0-4.8); LYMPHOCYTES % (AUTO) 7.8 % (22.0-44.0); MEAN CORPUSCULAR HEMOGLOBIN 28.8 pg (26.0-34.0); MEAN CORPUSCULAR HGB CONC 32.1 G/dL (31.0-37.0); MEAN CORPUSCULAR VOLUME 90 fL (80-100); MONOCYTES # (AUTO) 1.5 K/uL (0.1-1.0); NEUTROPHILS # (AUTO) 13.5 K/uL (1.8-7.7); NEUTROPHILS % (AUTO) 83.1 % (40.0-70.0); PLATELET COUNT (AUTO) 167 K/uL (150-450); RED BLOOD CELL COUNT(AUTO) 3.87 MIL/uL (4.50-5.90); RED CELL DISTRIBUTION WIDTH 16.1 % (11.5-14.5); WHITE BLOOD COUNT (AUTO) 16.2 K/uL (4.5-11.0)
[2016-07-16 06:58] LABS: ALBUMIN 2.4 g/dL (3.4-5.0); BILIRUBIN,TOTAL 0.2 mg/dL (0.1-1.0); CALCIUM, TOTAL 8.7 mg/dL (8.8-10.5); CREATININE 1.54 mg/dL (0.60-1.30); MAGNESIUM 2.4 mg/dL (1.80-2.40); POTASSIUM 4.7 mmol/L (3.5-5.1); TOTAL PROTEIN, SERUM 7.1 g/dL (6.4-8.2)
[2016-07-16 07:28] VITALS: BP 129/80
[2016-07-16] MEDS: BUDESONIDE 0.5 MG/2 ML NEB SOLUTION NEB SCH ×2 (07:56→19:54)
[2016-07-16 08:29] LABS: ABG A-A DIFF O2 56.2 mmHg (10-20.0); ABG BASE EXCESS 10.4 mmol/L (-2.0-3.0); ABG OXYHEMOGLOBIN 94.9 % (94.0-100.0); ABG PCO2 68 mmHg (35-45); ABG PH 7.346 (7.35-7.450); ALLEN TEST, BLOOD GAS Positive; TEMPERATURE, FAHRENHEIT, BG 98.6 FAHREN (96.0-98.6)
[2016-07-16] MEDS: PREGABALIN 75 MG CAPSULE PO SCH ×3 (08:36→20:50)
[2016-07-16] MEDS: MONTELUKAST SODIUM 10 MG TABLET PO SCH (08:36)
[2016-07-16] MEDS: FUROSEMIDE 20 MG/2 ML VIAL IVP SCH ×2 (08:36→20:51)
[2016-07-16] MEDS: PANTOPRAZOLE SODIUM 40 MG/VIAL IVP SCH (08:36)
[2016-07-16] MEDS: ASPIRIN 81 MG EC TABLET PO SCH (08:37)
[2016-07-16] MEDS: PredniSONE 20 MG TABLET PO SCH (08:37)
[2016-07-16] MEDS: DOCUSATE SODIUM 100 MG CAPSULE PO SCH ×2 (08:37→20:50)
[2016-07-16] MEDS: PRAVASTATIN SODIUM 20 MG TABLET PO SCH (08:37)
[2016-07-16] MEDS: DILTIAZEM HCL CD 180 MG ER CAPSULE PO SCH ×2 (08:37→20:50)
[2016-07-16] MEDS: DULoxetine HCL 20 MG CAPSULE PO SCH (08:37)
[2016-07-16] MEDS: INSULIN DETEMIR 100 UNITS/ML SQ SCH ×2 (08:51→20:52)
[2016-07-16 11:53] VITALS: BP 173/72
[2016-07-16] MEDS: METOPROLOL SUCCINATE 25 MG ER TABLET PO SCH ×2 (12:03→20:51)
[2016-07-16 16:01] VITALS: BP 117/70
[2016-07-16] MEDS: LEVOFLOXACIN 500 MG/D5% WATER 100 ML IV SCH (17:56)
[2016-07-16 18:18] LABS: GLUCOSE COMMENT 1 Repeated; GLUCOSE,POINT OF CARE 599 MG/DL (70-110)
[2016-07-16 18:18] LABS: GLUCOSE,POINT OF CARE 301 MG/DL (70-110)
[2016-07-16 18:18] LABS: GLUCOSE COMMENT 1 Received Meds; GLUCOSE,POINT OF CARE 179 MG/DL (70-110)
[2016-07-16 18:18] LABS: GLUCOSE COMMENT 1 Received Meds; GLUCOSE,POINT OF CARE 548 MG/DL (70-110)
[2016-07-16 18:19] LABS: GLUCOSE COMMENT 1 Received Meds; GLUCOSE,POINT OF CARE 187 MG/DL (70-110)
[2016-07-16 18:19] LABS: GLUCOSE,POINT OF CARE 347 MG/DL (70-110)
[2016-07-16 18:19] LABS: GLUCOSE COMMENT 1 Received Meds; GLUCOSE,POINT OF CARE 347 MG/DL (70-110)
[2016-07-16 18:19] LABS: GLUCOSE COMMENT 1 Received Meds; GLUCOSE,POINT OF CARE 286 MG/DL (70-110)
[2016-07-16 18:19] LABS: GLUCOSE COMMENT 1 Juice/Food/D50 Given; GLUCOSE,POINT OF CARE 59 MG/DL (70-110)
[2016-07-16 18:19] LABS: GLUCOSE COMMENT 1 Received Meds; GLUCOSE,POINT OF CARE 402 MG/DL (70-110)
[2016-07-16 18:19] LABS: GLUCOSE,POINT OF CARE 400 MG/DL (70-110)
[2016-07-16 18:19] LABS: GLUCOSE,POINT OF CARE 312 MG/DL (70-110)
[2016-07-16 18:19] LABS: GLUCOSE COMMENT 1 Received Meds; GLUCOSE,POINT OF CARE 221 MG/DL (70-110)
[2016-07-16 18:19] LABS: GLUCOSE COMMENT 1 Received Meds; GLUCOSE,POINT OF CARE 243 MG/DL (70-110)
[2016-07-16 18:19] LABS: GLUCOSE,POINT OF CARE 280 MG/DL (70-110)
[2016-07-16 18:19] LABS: GLUCOSE COMMENT 1 Received Meds; GLUCOSE,POINT OF CARE 394 MG/DL (70-110)
[2016-07-16 18:19] LABS: GLUCOSE,POINT OF CARE 308 MG/DL (70-110)
[2016-07-16 18:19] LABS: GLUCOSE COMMENT 1 Received Meds; GLUCOSE,POINT OF CARE 294 MG/DL (70-110)
[2016-07-16 18:19] LABS: GLUCOSE,POINT OF CARE 368 MG/DL (70-110)
[2016-07-16 19:29] VITALS: BP 125/65
[2016-07-16] MEDS: MIRTAZAPINE 15 MG TABLET PO SCH (20:50)
[2016-07-16 23:10] VITALS: BP 158/86
[2016-07-17] MEDS: HEPARIN SODIUM,PORCINE 5,000 UNITS/ML VIAL SQ SCH ×4 (00:11→23:50)
[2016-07-17] MEDS: NITROGLYCERIN 2% (1 GM=INCH) PACKET TP SCH ×4 (00:11→23:50)
[2016-07-17] MEDS: IPRATROPIUM BROMIDE 0.5 MG/2.5 ML NEB SOLUTION NEB SCH ×6 (02:55→23:18)
[2016-07-17] MEDS: MORPHINE SULFATE 2 MG/ML SYRINGE IVP PRN ×3 (03:11→15:38)
[2016-07-17 04:51] VITALS: BP 125/89
[2016-07-17] MEDS: INSULIN ASPART 100 UNITS/ML SQ PRN ×4 (06:22→21:55)
[2016-07-17 06:34] LABS: GLUCOSE,POINT OF CARE 273 MG/DL (70-110)
[2016-07-17 06:34] LABS: GLUCOSE COMMENT 1 Doctor Notified; GLUCOSE,POINT OF CARE 522 MG/DL (70-110)
[2016-07-17 06:34] LABS: GLUCOSE COMMENT 1 Doctor Notified; GLUCOSE,POINT OF CARE 479 MG/DL (70-110)
[2016-07-17 06:34] LABS: GLUCOSE COMMENT 1 Doctor Notified; GLUCOSE,POINT OF CARE 534 MG/DL (70-110)
[2016-07-17 06:34] LABS: GLUCOSE COMMENT 1 Received Meds; GLUCOSE,POINT OF CARE 301 MG/DL (70-110)
[2016-07-17 06:34] LABS: GLUCOSE COMMENT 1 Received Meds; GLUCOSE,POINT OF CARE 320 MG/DL (70-110)
[2016-07-17 06:34] LABS: GLUCOSE COMMENT 1 Received Meds; GLUCOSE,POINT OF CARE 240 MG/DL (70-110)
[2016-07-17 06:34] LABS: GLUCOSE COMMENT 1 Received Meds; GLUCOSE,POINT OF CARE 292 MG/DL (70-110)
[2016-07-17 06:34] LABS: GLUCOSE COMMENT 1 Received Meds; GLUCOSE,POINT OF CARE 388 MG/DL (70-110)
[2016-07-17 06:34] LABS: GLUCOSE,POINT OF CARE 267 MG/DL (70-110)
[2016-07-17 06:34] LABS: GLUCOSE,POINT OF CARE 347 MG/DL (70-110)
[2016-07-17 06:35] LABS: GLUCOSE,POINT OF CARE 138 MG/DL (70-110)
[2016-07-17 06:35] LABS: GLUCOSE COMMENT 1 Received Meds; GLUCOSE,POINT OF CARE 187 MG/DL (70-110)
[2016-07-17 06:35] LABS: GLUCOSE COMMENT 1 Received Meds; GLUCOSE,POINT OF CARE 432 MG/DL (70-110)
[2016-07-17 06:35] LABS: GLUCOSE COMMENT 1 Received Meds; GLUCOSE,POINT OF CARE 117 MG/DL (70-110)
[2016-07-17 07:33] VITALS: BP 132/79
[2016-07-17] MEDS: BUDESONIDE 0.5 MG/2 ML NEB SOLUTION NEB SCH ×2 (07:47→19:36)
[2016-07-17] MEDS: PANTOPRAZOLE SODIUM 40 MG/VIAL IVP SCH (08:48)
[2016-07-17] MEDS: DOCUSATE SODIUM 100 MG CAPSULE PO SCH ×2 (08:48→20:33)
[2016-07-17] MEDS: DULoxetine HCL 20 MG CAPSULE PO SCH (08:48)
[2016-07-17] MEDS: DILTIAZEM HCL CD 180 MG ER CAPSULE PO SCH ×2 (08:48→20:34)
[2016-07-17] MEDS: FUROSEMIDE 20 MG/2 ML VIAL IVP SCH ×2 (08:48→20:33)
[2016-07-17] MEDS: PredniSONE 20 MG TABLET PO SCH (08:49)
[2016-07-17] MEDS: ASPIRIN 81 MG EC TABLET PO SCH (08:49)
[2016-07-17] MEDS: MONTELUKAST SODIUM 10 MG TABLET PO SCH (08:49)
[2016-07-17] MEDS: PRAVASTATIN SODIUM 20 MG TABLET PO SCH (08:49)
[2016-07-17] MEDS: METOPROLOL SUCCINATE 25 MG ER TABLET PO SCH ×2 (08:50→20:33)
[2016-07-17] MEDS: PREGABALIN 75 MG CAPSULE PO SCH ×3 (08:51→20:33)
[2016-07-17] MEDS: INSULIN DETEMIR 100 UNITS/ML SQ SCH ×2 (08:54→20:36)
[2016-07-17 11:29] VITALS: BP 119/78
[2016-07-17 13:02] LABS: ABG A-A DIFF O2 49.9 mmHg (10-20.0); ABG BASE EXCESS 7.6 mmol/L (-2.0-3.0); ABG HCO3 29.8 mmol/L (22.0-26.0); ABG OXYHEMOGLOBIN 93.4 % (94.0-100.0); ABG PCO2 59 mmHg (35-45); ABG PH 7.367 (7.35-7.450); ALLEN TEST, BLOOD GAS Positive; IPAP, BG 18 cm H2O; TEMPERATURE, FAHRENHEIT, BG 98.6 FAHREN (96.0-98.6)
[2016-07-17 15:35] VITALS: BP 125/72
[2016-07-17] MEDS: LEVOFLOXACIN 500 MG/D5% WATER 100 ML IV SCH (17:23)
[2016-07-17 20:14] VITALS: BP 124/83
[2016-07-17] MEDS: MIRTAZAPINE 15 MG TABLET PO SCH (20:34)
[2016-07-17 23:48] VITALS: BP 137/84
[2016-07-17] MEDS: HYDROCODONE/ACETAMINOPHEN 5-325 MG TABLET PO PRN (23:51)
[2016-07-18] MEDS: IPRATROPIUM BROMIDE 0.5 MG/2.5 ML NEB SOLUTION NEB SCH ×6 (03:06→23:01)
[2016-07-18 04:57] VITALS: BP 110/69
[2016-07-18] MEDS: INSULIN ASPART 100 UNITS/ML SQ PRN ×4 (05:19→21:34)
[2016-07-18] MEDS: HYDROCODONE/ACETAMINOPHEN 5-325 MG TABLET PO PRN ×2 (05:34→12:44)
[2016-07-18 07:07] LABS: GLUCOSE COMMENT 1 Received Meds; GLUCOSE,POINT OF CARE 190 MG/DL (70-110)
[2016-07-18 07:07] LABS: GLUCOSE COMMENT 1 Received Meds; GLUCOSE,POINT OF CARE 237 MG/DL (70-110)
[2016-07-18 07:07] LABS: GLUCOSE COMMENT 1 Received Meds; GLUCOSE,POINT OF CARE 268 MG/DL (70-110)
[2016-07-18 07:08] LABS: GLUCOSE COMMENT 1 Received Meds; GLUCOSE,POINT OF CARE 295 MG/DL (70-110)
[2016-07-18 07:35] VITALS: BP 111/80
[2016-07-18] MEDS: CALCIUM CARBONATE 500 MG CHEWABLE TABLET CHEW PRN (08:21)
[2016-07-18] MEDS: HEPARIN SODIUM,PORCINE 5,000 UNITS/ML VIAL SQ SCH ×2 (08:22→17:59)
[2016-07-18] MEDS: PANTOPRAZOLE SODIUM 40 MG/VIAL IVP SCH (08:22)
[2016-07-18] MEDS: NITROGLYCERIN 2% (1 GM=INCH) PACKET TP SCH ×2 (08:22→18:00)
[2016-07-18] MEDS: METOPROLOL SUCCINATE 25 MG ER TABLET PO SCH ×2 (08:23→21:31)
[2016-07-18] MEDS: PRAVASTATIN SODIUM 20 MG TABLET PO SCH (08:23)
[2016-07-18] MEDS: FUROSEMIDE 20 MG/2 ML VIAL IVP SCH ×2 (08:23→21:30)
[2016-07-18] MEDS: PREGABALIN 75 MG CAPSULE PO SCH ×3 (08:24→21:31)
[2016-07-18] MEDS: DULoxetine HCL 20 MG CAPSULE PO SCH (08:24)
[2016-07-18] MEDS: DOCUSATE SODIUM 100 MG CAPSULE PO SCH ×2 (08:24→21:30)
[2016-07-18] MEDS: MONTELUKAST SODIUM 10 MG TABLET PO SCH (08:24)
[2016-07-18] MEDS: DILTIAZEM HCL CD 180 MG ER CAPSULE PO SCH ×2 (08:24→21:31)
[2016-07-18] MEDS: ASPIRIN 81 MG EC TABLET PO SCH (08:24)
[2016-07-18] MEDS: PredniSONE 20 MG TABLET PO SCH (08:25)
[2016-07-18] MEDS: BUDESONIDE 0.5 MG/2 ML NEB SOLUTION NEB SCH ×2 (09:42→19:19)
[2016-07-18] MEDS: INSULIN DETEMIR 100 UNITS/ML SQ SCH ×2 (10:53→21:37)
[2016-07-18 11:54] VITALS: BP 126/73
[2016-07-18 15:41] VITALS: BP 113/69
[2016-07-18 17:23] LABS: GLUCOSE COMMENT 1 Received Meds; GLUCOSE,POINT OF CARE 276 MG/DL (70-110)
[2016-07-18] MEDS: LEVOFLOXACIN 500 MG/D5% WATER 100 ML IV SCH (17:59)
[2016-07-18] MEDS: MethylPREDNISolone SOD SUCC 125 MG/2 ML VIAL IVP SCH (18:12)
[2016-07-18 19:31] VITALS: BP 133/83
[2016-07-18] MEDS: MIRTAZAPINE 15 MG TABLET PO SCH (21:32)
[2016-07-18] MEDS: MORPHINE SULFATE 2 MG/ML SYRINGE IVP PRN (21:40)
[2016-07-19] MEDS: HEPARIN SODIUM,PORCINE 5,000 UNITS/ML VIAL SQ SCH ×3 (00:01→17:38)
[2016-07-19] MEDS: NITROGLYCERIN 2% (1 GM=INCH) PACKET TP SCH ×3 (00:01→17:36)
[2016-07-19 00:12] VITALS: BP 122/76
[2016-07-19] MEDS: IPRATROPIUM BROMIDE 0.5 MG/2.5 ML NEB SOLUTION NEB SCH ×6 (03:47→23:26)
[2016-07-19 04:00] VITALS: BP 119/73
[2016-07-19] MEDS: MethylPREDNISolone SOD SUCC 125 MG/2 ML VIAL IVP SCH ×4 (05:47→18:07)
[2016-07-19] MEDS: INSULIN ASPART 100 UNITS/ML SQ PRN ×3 (05:48→21:28)
[2016-07-19 07:20] VITALS: BP 117/71
[2016-07-19] MEDS: BUDESONIDE 0.5 MG/2 ML NEB SOLUTION NEB SCH ×2 (07:56→19:17)
[2016-07-19] MEDS: FUROSEMIDE 20 MG/2 ML VIAL IVP SCH ×2 (09:28→21:21)
[2016-07-19] MEDS: DOCUSATE SODIUM 100 MG CAPSULE PO SCH ×2 (09:29→21:22)
[2016-07-19] MEDS: PANTOPRAZOLE SODIUM 40 MG/VIAL IVP SCH (09:29)
[2016-07-19] MEDS: ASPIRIN 81 MG EC TABLET PO SCH (09:30)
[2016-07-19] MEDS: PREGABALIN 75 MG CAPSULE PO SCH ×3 (09:30→21:22)
[2016-07-19] MEDS: METOPROLOL SUCCINATE 25 MG ER TABLET PO SCH ×2 (09:31→21:22)
[2016-07-19] MEDS: DULoxetine HCL 20 MG CAPSULE PO SCH (09:32)
[2016-07-19] MEDS: DILTIAZEM HCL CD 180 MG ER CAPSULE PO SCH ×2 (09:32→21:22)
[2016-07-19] MEDS: PRAVASTATIN SODIUM 20 MG TABLET PO SCH (09:33)
[2016-07-19] MEDS: MONTELUKAST SODIUM 10 MG TABLET PO SCH (09:46)
[2016-07-19] MEDS: MORPHINE SULFATE 2 MG/ML SYRINGE IVP PRN ×2 (09:46→21:24)
[2016-07-19] MEDS: INSULIN DETEMIR 100 UNITS/ML SQ SCH ×2 (09:55→21:23)
[2016-07-19 10:23] LABS: GLUCOSE,POINT OF CARE 119 MG/DL (70-110)
[2016-07-19 10:23] LABS: GLUCOSE COMMENT 1 Received Meds; GLUCOSE,POINT OF CARE 220 MG/DL (70-110)
[2016-07-19 11:34] VITALS: BP 120/66
[2016-07-19] MEDS ORDERED: INSULIN ASPART 100 UNITS/ML SQ ONE (12:00)
[2016-07-19 15:53] VITALS: BP 117/62
[2016-07-19] MEDS: LEVOFLOXACIN 500 MG/D5% WATER 100 ML IV SCH (18:07)
[2016-07-19 20:12] VITALS: BP 112/70
[2016-07-19] MEDS: MIRTAZAPINE 15 MG TABLET PO SCH (21:23)
[2016-07-19 21:42] LABS: GLUCOSE COMMENT 1 Received Meds; GLUCOSE,POINT OF CARE 203 MG/DL (70-110)
[2016-07-20 00:14] VITALS: BP 121/74
[2016-07-20] MEDS: NITROGLYCERIN 2% (1 GM=INCH) PACKET TP SCH ×3 (00:57→16:10)
[2016-07-20] MEDS: MethylPREDNISolone SOD SUCC 125 MG/2 ML VIAL IVP SCH ×3 (00:57→12:00)
[2016-07-20] MEDS: HEPARIN SODIUM,PORCINE 5,000 UNITS/ML VIAL SQ SCH ×3 (00:58→16:11)
[2016-07-20] MEDS: IPRATROPIUM BROMIDE 0.5 MG/2.5 ML NEB SOLUTION NEB SCH ×4 (03:05→14:39)
[2016-07-20 04:34] VITALS: BP 115/72
[2016-07-20] MEDS: INSULIN ASPART 100 UNITS/ML SQ PRN ×2 (06:27→12:34)
[2016-07-20 06:57] LABS: GLUCOSE COMMENT 1 Received Meds; GLUCOSE,POINT OF CARE 344 MG/DL (70-110)
[2016-07-20] MEDS: BUDESONIDE 0.5 MG/2 ML NEB SOLUTION NEB SCH (07:57)
[2016-07-20 08:09] VITALS: BP 141/77
[2016-07-20] MEDS: PANTOPRAZOLE SODIUM 40 MG/VIAL IVP SCH (09:00)
[2016-07-20] MEDS: FUROSEMIDE 20 MG/2 ML VIAL IVP SCH (09:00)
[2016-07-20] MEDS: DILTIAZEM HCL CD 180 MG ER CAPSULE PO SCH (09:43)
[2016-07-20] MEDS: DOCUSATE SODIUM 100 MG CAPSULE PO SCH (09:43)
[2016-07-20] MEDS: PREGABALIN 75 MG CAPSULE PO SCH ×2 (09:44→16:10)
[2016-07-20] MEDS: ASPIRIN 81 MG EC TABLET PO SCH (09:44)
[2016-07-20] MEDS: DULoxetine HCL 20 MG CAPSULE PO SCH (09:44)
[2016-07-20] MEDS: PRAVASTATIN SODIUM 20 MG TABLET PO SCH (09:45)
[2016-07-20] MEDS: MONTELUKAST SODIUM 10 MG TABLET PO SCH (09:45)
[2016-07-20] MEDS: METOPROLOL SUCCINATE 25 MG ER TABLET PO SCH (09:46)
[2016-07-20] MEDS: INSULIN DETEMIR 100 UNITS/ML SQ SCH (09:50)
[2016-07-20 15:57] VITALS: BP 153/111
[2016-07-21 06:07] LABS: GLUCOSE COMMENT 1 Received Meds; GLUCOSE,POINT OF CARE 182 MG/DL (70-110)
[2016-07-21 06:07] LABS: GLUCOSE,POINT OF CARE 265 MG/DL (70-110)
[2016-07-22 11:38] LABS: GLUCOSE COMMENT 1 Received Meds; GLUCOSE,POINT OF CARE 296 MG/DL (70-110)
[2016-07-24 21:47] LABS: GLUCOSE COMMENT 1 Received Meds; GLUCOSE,POINT OF CARE 173 MG/DL (70-110)
[2016-07-24 21:48] LABS: GLUCOSE COMMENT 1 Received Meds; GLUCOSE,POINT OF CARE 323 MG/DL (70-110)
[2016-07-24 21:48] LABS: GLUCOSE COMMENT 1 Received Meds; GLUCOSE,POINT OF CARE 470 MG/DL (70-110)
[2016-07-24 21:48] LABS: GLUCOSE COMMENT 1 Received Meds; GLUCOSE,POINT OF CARE 360 MG/DL (70-110)
[2016-07-24 21:53] LABS: GLUCOSE COMMENT 1 Received Meds; GLUCOSE,POINT OF CARE 312 MG/DL (70-110)
== END 2016-07-20 17:10 | DRG 291 ==
LOC: EMS 05:35 → 5S 08:35
PROVIDERS: ADMIT Hospitalist; ATTEND Hospitalist
PROC: 5A09557 Assistance with Respiratory Ventilation, Greater than 96 Consecutive Hours, Continuous Positive Airway Pressure (ICD-10-PCS; principal; 2016-07-11)
DX: I50.43 Acute on chronic combined systolic (congestive) and diastolic (congestive) heart failure (principal); J18.9 Pneumonia, unspecified organism; J96.22 Acute and chronic respiratory failure with hypercapnia; J44.0 Chronic obstructive pulmonary disease with (acute) lower respiratory infection; I13.0 Hypertensive heart and chronic kidney disease with heart failure and stage 1 through stage 4 chronic kidney disease, or unspecified chronic kidney disease; I47.1 Supraventricular tachycardia; N17.9 Acute kidney failure, unspecified; J44.1 Chronic obstructive pulmonary disease with (acute) exacerbation; E66.01 Morbid (severe) obesity due to excess calories; E11.22 Type 2 diabetes mellitus with diabetic chronic kidney disease; D64.9 Anemia, unspecified; K21.9 Gastro-esophageal reflux disease without esophagitis; N18.3 Chronic kidney disease, stage 3 (moderate); F14.10 Cocaine abuse, uncomplicated; G25.81 Restless legs syndrome; D72.829 Elevated white blood cell count, unspecified; Z53.29 Procedure and treatment not carried out because of patient's decision for other reasons; E78.5 Hyperlipidemia, unspecified; G47.33 Obstructive sleep apnea (adult) (pediatric); I25.9 Chronic ischemic heart disease, unspecified; F11.10 Opioid abuse, uncomplicated; I87.8 Other specified disorders of veins; I45.10 Unspecified right bundle-branch block; I49.3 Ventricular premature depolarization; Z91.19 Patient's noncompliance with other medical treatment and regimen; Z87.891 Personal history of nicotine dependence; Z91.14 Patient's other noncompliance with medication regimen; Z95.1 Presence of aortocoronary bypass graft; Z99.81 Dependence on supplemental oxygen; Z79.899 Other long term (current) drug therapy; Z93.0 Tracheostomy status; Z68.26 Body mass index [BMI] 26.0-26.9, adult; Z79.84 Long term (current) use of oral hypoglycemic drugs; Z79.82 Long term (current) use of aspirin
CPT/HCPCS: 71250; 82805; 82962; 83605; 83735; 84100; 87040; 87070; 87081; 87147; 87205; 93005; 93306; 94640; 94660; 96365; 96366; 96368; 96375; 97116; 97163; 97530; 99285; C9113; J0456; J0696; J1644; J1815; J1940; J1956; J2270; J2405; J2920; J2930; J3490; J7040; J7060

== ENCOUNTER 2016-08-07 19:53 | Inpatient (IN) | payer MEDICARE ==
[~2016-08-07] VITALS: Ht 180.3 cm; Wt 91.0 kg
[~2016-08-07 19:53] MED LIST changes: -ADV500 IH; -ALPR0.255 PO; +DULO20CA30 PO; -ERGO400T3 PO; -FAMO20 PO; +HEPA500035 SQ; -HYDR-3971 PO; -INSLAN SQ; -IPRA3AMP4 NEB; +IPRNEB IH; +METO-325 PO; -METO100XL PO; +MIRT15 PO; -MONT10TA21 PO; -OXYC10 PO; -PRED20 PO; -PREG75 PO; -TIOT185 IH; -TRAZ-147 PO; -ZOLP10 PO; -[UNRECOGNIZED DRUG - CODE] TD
[2016-08-07] MEDS ORDERED: HYDR-305 PO (20:06)
[2016-08-07] MEDS ORDERED: ALBUTEROL SULFATE 2.5 MG/0.5 ML NEB SOLUTION NEB ONE ×2 (20:08→20:15)
[2016-08-07] MEDS ORDERED: IPRATROPIUM BROMIDE 0.5 MG/2.5 ML NEB SOLUTION NEB ONE ×2 (20:08→20:15)
[2016-08-07] MEDS ORDERED: MethylPREDNISolone SOD SUCC 125 MG/2 ML VIAL IVP ONE (20:15)
[2016-08-07] MEDS ORDERED: ASPIRIN 81 MG CHEWABLE TABLET PO ONE (20:30)
[2016-08-07 20:48] LABS: BASOPHILS % (AUTO) 0.2 % (0.0-2.0); EOSINOPHILS % (AUTO) 0.1 % (1.0-6.0); HEMATOCRIT 35.6 % (41-53); HEMOGLOBIN 11.3 g/dL (13.5-17.5); LYMPHOCYTES % (AUTO) 12.1 % (22.0-44.0); MEAN CORPUSCULAR HEMOGLOBIN 29.7 pg (26.0-34.0); MEAN CORPUSCULAR HGB CONC 31.8 G/dL (31.0-37.0); MEAN CORPUSCULAR VOLUME 93 fL (80-100); MONOCYTES # (AUTO) 0.6 K/uL (0.1-1.0); MONOCYTES % (AUTO) 6.7 % (2.0-9.0); NEUTROPHILS # (AUTO) 6.9 K/uL (1.8-7.7); NEUTROPHILS % (AUTO) 80.9 % (40.0-70.0); PLATELET COUNT (AUTO) 128 K/uL (150-450); RED BLOOD CELL COUNT(AUTO) 3.81 MIL/uL (4.50-5.90); RED CELL DISTRIBUTION WIDTH 20.4 % (11.5-14.5); WHITE BLOOD COUNT (AUTO) 8.5 K/uL (4.5-11.0)
[2016-08-07 20:59] LABS: ANION GAP 2 mmol/L (8-16); CARBON DIOXIDE 38 mmol/L (22-29); CHLORIDE 96 mmol/L (98-107); GLOMERULAR FILTR. RATE CALC > 60 mL/min (>60); POTASSIUM 4.5 mmol/L (3.5-5.1); SODIUM SERUM 136 mmol/L (136-145); UREA NITROGEN, BLOOD 49 mg/dL (7-18)
[2016-08-07 21:05] LABS: ALANINE AMINOTRANSFERASE 63 U/L (12-78); ALBUMIN 3.1 g/dL (3.4-5.0); ASPARTATE AMINOTRANSFERASE 26 U/L (15-37); BILIRUBIN,TOTAL 0.5 mg/dL (0.1-1.0); TOTAL PROTEIN, SERUM 6.9 g/dL (6.4-8.2)
[2016-08-07 21:06] LABS: B-TYPE NATRIURETIC PEPTIDE 72 pg/mL (0-100)
[2016-08-07 21:20] LABS: CREATINE KINASE, TOTAL 49 U/L (39-308)
[2016-08-07 21:23] LABS: RBC MORPHOLOGY COMMENT ABNORMAL RBC MORPH
[2016-08-07] MEDS ORDERED: MAGNESIUM HYDROXIDE SUSPENSION 30 ML UDCUP PO PRN (21:45)
[2016-08-07] MEDS ORDERED: ACETAMINOPHEN 325 MG TABLET PO PRN (21:45)
[2016-08-07] MEDS ORDERED: INSULIN ASPART 100 UNITS/ML SQ PRN (22:00)
[2016-08-07] MEDS ORDERED: DEXTROSE 50%-WATER 25 GM/50 ML SYRINGE IVP PRN (22:00)
[2016-08-07 22:05] LABS: ADD UA MICROSCOPIC YES; APPEARANCE,URINE CLEAR (CLEAR); GLUCOSE, URINE (UA) >=1000 mg/dL (NEGATIVE); KETONES,URINE NEGATIVE (NEGATIVE); LEUKOCYTE ESTERASE ,URINE NEGATIVE (NEGATIVE); OCCULT BLOOD,URINE NEGATIVE (NEGATIVE); PROTEIN,URINE NEGATIVE (NEGATIVE)
[2016-08-07 22:09] LABS: RBC,URINE 0-2 /HPF (0-2); SQUAMOUS EPITHELIAL CELL,UR Rare /LPF (None Seen); WBC,URINE 0-2 /HPF (0-5)
[2016-08-07 22:31] LABS: ABG A-A DIFF O2 54.8 mmHg (10-20.0); ABG BASE EXCESS 12.8 mmol/L (-2.0-3.0); ABG HCO3 34.3 mmol/L (22.0-26.0); ABG OXYHEMOGLOBIN 94.5 % (94.0-100.0); ABG PCO2 62 mmHg (35-45); ABG PH 7.399 (7.35-7.450); ALLEN TEST, BLOOD GAS POS; TEMPERATURE, FAHRENHEIT, BG 97.4 FAHREN (96.0-98.6)
[2016-08-07 22:32] LABS: IPAP, BG 18 cm H2O
[2016-08-08] VITALS (10 sets, daily range): BP systolic 119–166; BP diastolic 63–86
[2016-08-08] MEDS: ALBUTEROL SULFATE 2.5 MG/0.5 ML NEB SOLUTION NEB SCH ×7 (00:42→23:07)
[2016-08-08] MEDS: IPRATROPIUM BROMIDE 0.5 MG/2.5 ML NEB SOLUTION NEB SCH ×7 (00:42→23:07)
[2016-08-08] MEDS: OxyCODONE HCL/ACETAMINOPHEN 5-325 MG TABLET PO PRN ×4 (01:21→19:30)
[2016-08-08] MEDS: HEPARIN SODIUM,PORCINE 5,000 UNITS/ML VIAL SQ SCH ×4 (01:21→23:25)
[2016-08-08] MEDS: MethylPREDNISolone SOD SUCC 125 MG/2 ML VIAL IVP SCH ×5 (02:44→23:24)
[2016-08-08] MEDS ORDERED: 0.9% SODIUM CHLORIDE 10 ML SYRINGE IVP PRN (04:30)
[2016-08-08] MEDS ORDERED: INSULIN ASPART 100 UNITS/ML SQ ONE ×2 (05:45→12:15)
[2016-08-08 06:47] LABS: GLUCOSE,POINT OF CARE 474 MG/DL (70-110)
[2016-08-08] MEDS: DOCUSATE SODIUM 100 MG CAPSULE PO SCH ×2 (08:00→19:33)
[2016-08-08] MEDS: ASPIRIN 81 MG CHEWABLE TABLET PO SCH (08:01)
[2016-08-08] MEDS: PANTOPRAZOLE SODIUM 40 MG DR TABLET PO SCH (08:01)
[2016-08-08] MEDS ORDERED: DEXTROSE 50%-WATER 25 GM/50 ML SYRINGE IVP PRN (12:15)
[2016-08-08] MEDS: INSULIN ASPART 100 UNITS/ML SQ PRN ×4 (12:28→23:24)
[2016-08-08] MEDS ORDERED: HydrALAZINE HCL 20 MG/ML VIAL IVP PRN (15:30)
[2016-08-08 20:12] LABS: GLUCOSE COMMENT 1 Received Meds; GLUCOSE,POINT OF CARE 522 MG/DL (70-110)
[2016-08-08 20:12] LABS: GLUCOSE,POINT OF CARE 393 MG/DL (70-110)
[2016-08-08] MEDS: BUDESONIDE 0.5 MG/2 ML NEB SOLUTION NEB SCH (20:29)
[2016-08-08] MEDS ORDERED: INSULIN DETEMIR 100 UNITS/ML SQ SCH (21:00)
[2016-08-08 21:15] LABS: CREATINE KINASE, TOTAL 34 U/L (39-308)
[2016-08-08] MEDS ORDERED: INSULIN DETEMIR 100 UNITS/ML SQ ONE (21:45)
[2016-08-08 23:42] LABS: GLUCOSE COMMENT 1 Doctor Notified; GLUCOSE,POINT OF CARE 563 MG/DL (70-110)
[2016-08-08 23:42] LABS: GLUCOSE COMMENT 1 Received Meds; GLUCOSE,POINT OF CARE 557 MG/DL (70-110)
[2016-08-08 23:42] LABS: GLUCOSE,POINT OF CARE 541 MG/DL (70-110)
[2016-08-08 23:42] LABS: GLUCOSE COMMENT 1 Received Meds; GLUCOSE,POINT OF CARE 454 MG/DL (70-110)
[2016-08-09] MEDS: OxyCODONE HCL/ACETAMINOPHEN 5-325 MG TABLET PO PRN ×3 (02:21→20:04)
[2016-08-09] MEDS: ALBUTEROL SULFATE 2.5 MG/0.5 ML NEB SOLUTION NEB SCH ×6 (02:51→23:00)
[2016-08-09] MEDS: IPRATROPIUM BROMIDE 0.5 MG/2.5 ML NEB SOLUTION NEB SCH ×6 (02:51→23:00)
[2016-08-09 04:44] VITALS: BP 138/81
[2016-08-09] MEDS: MethylPREDNISolone SOD SUCC 125 MG/2 ML VIAL IVP SCH ×4 (05:19→23:03)
[2016-08-09] MEDS: INSULIN ASPART 100 UNITS/ML SQ PRN ×4 (06:39→20:11)
[2016-08-09 06:59] LABS: BASOPHILS % (AUTO) 0.1 % (0.0-2.0); EOSINOPHILS % (AUTO) 0 % (1.0-6.0); HEMATOCRIT 33.6 % (41-53); HEMOGLOBIN 10.7 g/dL (13.5-17.5); LYMPHOCYTES % (AUTO) 9.1 % (22.0-44.0); MEAN CORPUSCULAR HEMOGLOBIN 29.9 pg (26.0-34.0); MEAN CORPUSCULAR HGB CONC 31.9 G/dL (31.0-37.0); MEAN CORPUSCULAR VOLUME 94 fL (80-100); MONOCYTES # (AUTO) 0.4 K/uL (0.1-1.0); MONOCYTES % (AUTO) 3.3 % (2.0-9.0); NEUTROPHILS # (AUTO) 9.7 K/uL (1.8-7.7); PLATELET COUNT (AUTO) 142 K/uL (150-450); RED BLOOD CELL COUNT(AUTO) 3.57 MIL/uL (4.50-5.90); RED CELL DISTRIBUTION WIDTH 19.6 % (11.5-14.5); WHITE BLOOD COUNT (AUTO) 11.1 K/uL (4.5-11.0)
[2016-08-09 07:10] LABS: CREATINE KINASE, TOTAL 30 U/L (39-308); PHOSPHORUS 2.9 mg/dL (2.5-4.9)
[2016-08-09 07:19] LABS: NEUTROPHILS % (AUTO) 87.5 % (40.0-70.0)
[2016-08-09 07:27] LABS: GLUCOSE COMMENT 1 Received Meds; GLUCOSE,POINT OF CARE 356 MG/DL (70-110)
[2016-08-09 07:28] LABS: B-TYPE NATRIURETIC PEPTIDE 66 pg/mL (0-100)
[2016-08-09 07:35] VITALS: BP 126/73
[2016-08-09 07:36] LABS: RBC MORPHOLOGY COMMENT ABNORMAL RBC MORPH
[2016-08-09] MEDS: BUDESONIDE 0.5 MG/2 ML NEB SOLUTION NEB SCH ×2 (08:13→20:12)
[2016-08-09] MEDS: DOCUSATE SODIUM 100 MG CAPSULE PO SCH ×2 (09:00→20:04)
[2016-08-09] MEDS: HEPARIN SODIUM,PORCINE 5,000 UNITS/ML VIAL SQ SCH ×3 (09:22→23:03)
[2016-08-09] MEDS: INSULIN DETEMIR 100 UNITS/ML SQ SCH ×2 (09:33→20:11)
[2016-08-09 11:14] VITALS: BP 124/71
[2016-08-09] MEDS: PANTOPRAZOLE SODIUM 40 MG DR TABLET PO SCH (12:10)
[2016-08-09] MEDS: ASPIRIN 81 MG CHEWABLE TABLET PO SCH (12:11)
[2016-08-09 15:34] VITALS: BP 161/77
[2016-08-09 16:33] LABS: GLUCOSE COMMENT 1 Received Meds; GLUCOSE,POINT OF CARE 353 MG/DL (70-110)
[2016-08-09 17:08] VITALS: BP 121/70
[2016-08-09 19:50] LABS: CREATINE KINASE, TOTAL 38 U/L (39-308)
[2016-08-09 20:13] VITALS: BP 133/79
[2016-08-10] VITALS (7 sets, daily range): BP systolic 108–148; BP diastolic 59–88
[2016-08-10] MEDS: OxyCODONE HCL/ACETAMINOPHEN 5-325 MG TABLET PO PRN ×2 (01:02→16:47)
[2016-08-10] MEDS: ALBUTEROL SULFATE 2.5 MG/0.5 ML NEB SOLUTION NEB SCH ×6 (02:38→23:04)
[2016-08-10] MEDS: IPRATROPIUM BROMIDE 0.5 MG/2.5 ML NEB SOLUTION NEB SCH ×6 (02:39→23:04)
[2016-08-10] MEDS: MethylPREDNISolone SOD SUCC 125 MG/2 ML VIAL IVP SCH ×3 (06:23→16:45)
[2016-08-10] MEDS: INSULIN ASPART 100 UNITS/ML SQ PRN ×4 (06:25→20:56)
[2016-08-10 06:38] LABS: GLUCOSE COMMENT 1 Received Meds; GLUCOSE,POINT OF CARE 366 MG/DL (70-110)
[2016-08-10 06:38] LABS: GLUCOSE,POINT OF CARE 215 MG/DL (70-110)
[2016-08-10 07:33] LABS: GLUCOSE COMMENT 1 Received Meds; GLUCOSE,POINT OF CARE 241 MG/DL (70-110)
[2016-08-10] MEDS: BUDESONIDE 0.5 MG/2 ML NEB SOLUTION NEB SCH ×2 (08:13→19:35)
[2016-08-10] MEDS: PANTOPRAZOLE SODIUM 40 MG DR TABLET PO SCH (09:05)
[2016-08-10] MEDS: HEPARIN SODIUM,PORCINE 5,000 UNITS/ML VIAL SQ SCH ×2 (09:05→15:57)
[2016-08-10] MEDS: DOCUSATE SODIUM 100 MG CAPSULE PO SCH ×2 (09:05→20:52)
[2016-08-10] MEDS: ASPIRIN 81 MG CHEWABLE TABLET PO SCH (09:06)
[2016-08-10] MEDS: INSULIN DETEMIR 100 UNITS/ML SQ SCH ×2 (09:07→20:57)
[2016-08-10 14:07] LABS: GLUCOSE,POINT OF CARE 239 MG/DL (70-110)
[2016-08-10 14:13] LABS: GLUCOSE,POINT OF CARE 298 MG/DL (70-110)
[2016-08-10] MEDS ORDERED: MAG HYDROX/AL HYDROX/SIMETH 30 ML SUSP UDCUP PO ONE (16:00)
[2016-08-10 20:43] LABS: GLUCOSE,POINT OF CARE 271 MG/DL (70-110)
[2016-08-11] VITALS (7 sets, daily range): BP systolic 115–136; BP diastolic 72–85
[2016-08-11] MEDS: HEPARIN SODIUM,PORCINE 5,000 UNITS/ML VIAL SQ SCH ×3 (00:01→15:42)
[2016-08-11] MEDS: MAG HYDROX/AL HYDROX/SIMETH 30 ML SUSP UDCUP PO PRN ×2 (00:01→09:20)
[2016-08-11] MEDS: MethylPREDNISolone SOD SUCC 125 MG/2 ML VIAL IVP SCH ×4 (00:02→17:17)
[2016-08-11] MEDS: OxyCODONE HCL/ACETAMINOPHEN 5-325 MG TABLET PO PRN ×3 (00:09→22:00)
[2016-08-11] MEDS: IPRATROPIUM BROMIDE 0.5 MG/2.5 ML NEB SOLUTION NEB SCH ×5 (02:35→19:44)
[2016-08-11] MEDS: ALBUTEROL SULFATE 2.5 MG/0.5 ML NEB SOLUTION NEB SCH ×5 (02:35→19:44)
[2016-08-11] MEDS: INSULIN ASPART 100 UNITS/ML SQ PRN ×4 (05:54→23:08)
[2016-08-11] MEDS: BUDESONIDE 0.5 MG/2 ML NEB SOLUTION NEB SCH ×2 (07:27→19:44)
[2016-08-11] MEDS: ASPIRIN 81 MG CHEWABLE TABLET PO SCH (09:20)
[2016-08-11] MEDS: PANTOPRAZOLE SODIUM 40 MG DR TABLET PO SCH (09:20)
[2016-08-11] MEDS: DOCUSATE SODIUM 100 MG CAPSULE PO SCH ×2 (09:21→21:00)
[2016-08-11] MEDS: INSULIN DETEMIR 100 UNITS/ML SQ SCH ×2 (09:22→23:08)
[2016-08-11 11:02] LABS: GLUCOSE COMMENT 1 Received Meds; GLUCOSE,POINT OF CARE 244 MG/DL (70-110)
[2016-08-11 20:22] LABS: GLUCOSE,POINT OF CARE 207 MG/DL (70-110)
[2016-08-11 20:22] LABS: GLUCOSE,POINT OF CARE 225 MG/DL (70-110)
[2016-08-11 20:52] LABS: GLUCOSE,POINT OF CARE 185 MG/DL (70-110)
[2016-08-11 20:52] LABS: GLUCOSE,POINT OF CARE 292 MG/DL (70-110)
[2016-08-12] MEDS: MethylPREDNISolone SOD SUCC 125 MG/2 ML VIAL IVP SCH ×4 (00:17→17:18)
[2016-08-12] MEDS: MAG HYDROX/AL HYDROX/SIMETH 30 ML SUSP UDCUP PO PRN (00:18)
[2016-08-12] MEDS: HEPARIN SODIUM,PORCINE 5,000 UNITS/ML VIAL SQ SCH ×2 (00:18→08:14)
[2016-08-12] MEDS: ALBUTEROL SULFATE 2.5 MG/0.5 ML NEB SOLUTION NEB SCH ×5 (00:35→15:28)
[2016-08-12] MEDS: IPRATROPIUM BROMIDE 0.5 MG/2.5 ML NEB SOLUTION NEB SCH ×5 (00:35→15:28)
[2016-08-12 04:54] VITALS: BP 131/65
[2016-08-12 05:12] LABS: GLUCOSE COMMENT 1 Received Meds; GLUCOSE,POINT OF CARE 248 MG/DL (70-110)
[2016-08-12] MEDS: INSULIN ASPART 100 UNITS/ML SQ PRN ×3 (05:55→17:19)
[2016-08-12 07:32] LABS: GLUCOSE COMMENT 1 Received Meds; GLUCOSE,POINT OF CARE 277 MG/DL (70-110)
[2016-08-12] MEDS: BUDESONIDE 0.5 MG/2 ML NEB SOLUTION NEB SCH (07:44)
[2016-08-12 07:46] VITALS: BP 126/84
[2016-08-12] MEDS: PANTOPRAZOLE SODIUM 40 MG DR TABLET PO SCH (08:14)
[2016-08-12] MEDS: DOCUSATE SODIUM 100 MG CAPSULE PO SCH (08:14)
[2016-08-12] MEDS: ASPIRIN 81 MG CHEWABLE TABLET PO SCH (08:14)
[2016-08-12] MEDS: INSULIN DETEMIR 100 UNITS/ML SQ SCH (09:02)
[2016-08-12] MEDS: OxyCODONE HCL/ACETAMINOPHEN 5-325 MG TABLET PO PRN (10:17)
[2016-08-12 11:36] VITALS: BP 125/77
[2016-08-12] MEDS ORDERED: AUD NEB (13:29)
[2016-08-12] MEDS ORDERED: ASPI81 PO (13:30)
[2016-08-12] MEDS ORDERED: BUDE0.5A3 NEB (13:31)
[2016-08-12] MEDS ORDERED: DSS100 PO (13:32)
[2016-08-12] MEDS ORDERED: INSU100V12 SQ (13:35)
[2016-08-12] MEDS ORDERED: IPRNEB IH (13:36)
[2016-08-12] MEDS ORDERED: METH125V10 IVP (13:37)
[2016-08-12] MEDS ORDERED: PANT40TA25 PO (13:38)
[2016-08-12] MEDS ORDERED: ACET-2902 PO (13:39)
[2016-08-12] MEDS ORDERED: ACET650S28 PO (13:39)
[2016-08-12] MEDS ORDERED: D50SYG IVP (13:44)
[2016-08-12] MEDS ORDERED: INSNOV SQ (13:45)
[2016-08-12] MEDS ORDERED: MOM30 PO (13:46)
[2016-08-12] MEDS ORDERED: MAG30ORA11 PO (13:46)
[2016-08-12] MEDS ORDERED: OXYC-38 PO (13:48)
[2016-08-12 15:32] VITALS: BP 123/76
[2016-08-12 18:17] LABS: GLUCOSE COMMENT 1 Received Meds; GLUCOSE,POINT OF CARE 342 MG/DL (70-110)
[2016-08-12] MEDS ORDERED: HEPARIN SODIUM,PORCINE 5,000 UNITS/ML VIAL SQ SCH (21:00)
[2016-08-14 10:07] LABS: GLUCOSE COMMENT 1 Received Meds; GLUCOSE,POINT OF CARE 338 MG/DL (70-110)
== END 2016-08-12 18:50 | DRG 291 ==
LOC: EMS 19:56 → 5N 23:11
PROVIDERS: ADMIT Internal Medicine; ATTEND Internal Medicine
PROC: 5A09457 Assistance with Respiratory Ventilation, 24-96 Consecutive Hours, Continuous Positive Airway Pressure (ICD-10-PCS; principal; 2016-08-07)
DX: I50.31 Acute diastolic (congestive) heart failure (principal); J96.20 Acute and chronic respiratory failure, unspecified whether with hypoxia or hypercapnia; J44.1 Chronic obstructive pulmonary disease with (acute) exacerbation; I11.0 Hypertensive heart disease with heart failure; I25.10 Atherosclerotic heart disease of native coronary artery without angina pectoris; E11.9 Type 2 diabetes mellitus without complications; K21.9 Gastro-esophageal reflux disease without esophagitis; F14.90 Cocaine use, unspecified, uncomplicated; E78.5 Hyperlipidemia, unspecified; D64.9 Anemia, unspecified; D69.6 Thrombocytopenia, unspecified; Z79.82 Long term (current) use of aspirin; Z87.891 Personal history of nicotine dependence; Z95.1 Presence of aortocoronary bypass graft; Z79.4 Long term (current) use of insulin; Z82.5 Family history of asthma and other chronic lower respiratory diseases; Z83.3 Family history of diabetes mellitus; Z93.0 Tracheostomy status; Z82.49 Family history of ischemic heart disease and other diseases of the circulatory system; Z79.01 Long term (current) use of anticoagulants
CPT/HCPCS: 74000; 80307; 82805; 82962; 83735; 84100; 87081; 93005; 94640; 94660; 96374; 97167; 99291; J1644; J1815; J2930

== ENCOUNTER 2017-04-28 19:37 | Inpatient (IN) | payer MEDICARE, OTHER ==
[~2017-04-28] VITALS: Ht 180.3 cm; Wt 96.9 kg
[~2017-04-28 19:37] MED LIST changes: +ACET-2902 PO; +ASPI81 PO; +AUD NEB; +BUDE0.5A3 NEB; +D50SYG IVP; +DSS100 PO; +HYDR-305 PO; +INSNOV SQ; +INSU100V12 SQ; +MAG30ORA11 PO; +METH125V10 IVP; -METO-325 PO; +MOM30 PO; +OXYC-38 PO; +PANT40TA25 PO
[2017-04-28] MEDS ORDERED: IPRATROPIUM BROMIDE 0.5 MG/2.5 ML NEB SOLUTION NEB ONE (19:45)
[2017-04-28] MEDS ORDERED: ALBUTEROL SULFATE 5 MG/ML 20 ML NEB SOLN [BULK] NEB ONE (19:45)
[2017-04-28] MEDS ORDERED: LORA0.5T83 PO (19:56)
[2017-04-28] MEDS ORDERED: PYRI50 PO (19:56)
[2017-04-28] MEDS ORDERED: FAMO20 PO (19:56)
[2017-04-28] MEDS ORDERED: INSLAN SQ (19:56)
[2017-04-28] MEDS ORDERED: BUSP5TAB20 PO (19:56)
[2017-04-28] MEDS ORDERED: DILT60 PO (19:56)
[2017-04-28] MEDS ORDERED: PRED20 PO (19:56)
[2017-04-28] MEDS ORDERED: LUBI24CA2 PO (19:56)
[2017-04-28] MEDS ORDERED: FOLI0.4T4 PO (19:56)
[2017-04-28] MEDS ORDERED: FLUT1BLS IH (19:56)
[2017-04-28] MEDS ORDERED: LACT30L PO (19:56)
[2017-04-28] MEDS ORDERED: APIX5TAB PO (19:56)
[2017-04-28] MEDS ORDERED: TAMS0.4C32 PO (19:56)
[2017-04-28] MEDS ORDERED: BUME1TAB17 PO (19:56)
[2017-04-28] MEDS ORDERED: FERR-89 PO (19:56)
[2017-04-28] MEDS ORDERED: INSULIN REGULAR, HUMAN 100 UNITS/ML IVP ONE ×2 (20:15→21:45)
[2017-04-28] MEDS ORDERED: DEXAMETHASONE SOD PHOS 4 MG/ML 5 ML VIAL IVP ONE (20:15)
[2017-04-28] MEDS ORDERED: SODIUM CHLORIDE 0.9% 250 ML IV ONE (20:15)
[2017-04-28 20:23] LABS: BASOPHILS % (AUTO) 0.3 % (0.0-2.0); EOSINOPHILS % (AUTO) 0.1 % (1.0-6.0); HEMATOCRIT 43.7 % (41-53); HEMOGLOBIN 14.7 g/dL (13.5-17.5); LYMPHOCYTES # (AUTO) 0.7 K/uL (1.0-4.8); LYMPHOCYTES % (AUTO) 5.4 % (22.0-44.0); MEAN CORPUSCULAR HEMOGLOBIN 30.1 pg (26.0-34.0); MEAN CORPUSCULAR HGB CONC 33.8 G/dL (31.0-37.0); MEAN CORPUSCULAR VOLUME 89 fL (80-100); MONOCYTES # (AUTO) 0.6 K/uL (0.1-1.0); NEUTROPHILS # (AUTO) 11.3 K/uL (1.8-7.7); PLATELET COUNT (AUTO) 178 K/uL (150-450); RED CELL DISTRIBUTION WIDTH 14.6 % (11.5-14.5)
[2017-04-28] MEDS ORDERED: 0.9% SODIUM CHLORIDE 15 ML NEB SOLUTION NEB ONE (20:33)
[2017-04-28 20:40] LABS: PROTHROMBIN TIME 10.8 SEC (9.4-11.6)
[2017-04-28 20:41] LABS: NEUTROPHILS % (AUTO) 89.2 % (40.0-70.0)
[2017-04-28 20:44] LABS: ANION GAP 8 mmol/L (8-16); CALCIUM, TOTAL 8.9 mg/dL (8.8-10.5); CARBON DIOXIDE 33 mmol/L (22-29); CHLORIDE 96 mmol/L (98-107); CREATININE 1.44 mg/dL (0.60-1.30); GLOMERULAR FILTR. RATE CALC 59 mL/min (>60); GLUCOSE,RANDOM 397 mg/dL (70-110); POTASSIUM 4.5 mmol/L (3.5-5.1); SODIUM SERUM 137 mmol/L (136-145); UREA NITROGEN, BLOOD 36 mg/dL (7-18)
[2017-04-28 20:48] LABS: ALANINE AMINOTRANSFERASE 66 U/L (12-78); ALBUMIN 3.6 g/dL (3.4-5.0); ALKALINE PHOSPHATASE 104 U/L (46-116); ASPARTATE AMINOTRANSFERASE 18 U/L (15-37); BILIRUBIN,TOTAL 0.4 mg/dL (0.1-1.0); TOTAL PROTEIN, SERUM 7.9 g/dL (6.4-8.2)
[2017-04-28 20:52] LABS: LACTIC ACID 3.1 mmol/L (0.4-2.0)
[2017-04-28] MEDS ORDERED: HYDROCODONE/ACETAMINOPHEN 10-325 MG TABLET PO ONE (21:00)
[2017-04-28 21:03] LABS: APPEARANCE,URINE CLEAR (CLEAR); BILIRUBIN,URINE NEGATIVE (NEGATIVE); GLUCOSE, URINE (UA) 500 mg/dL (NEGATIVE); KETONES,URINE NEGATIVE (NEGATIVE); LEUKOCYTE ESTERASE ,URINE NEGATIVE (NEGATIVE); NITRATE,URINE NEGATIVE (NEGATIVE); OCCULT BLOOD,URINE NEGATIVE (NEGATIVE); PROTEIN,URINE NEGATIVE (NEGATIVE); UROBILINOGEN,URINE 0.2 mg/dL (<=1.0)
[2017-04-28 21:12] LABS: RBC,URINE None Seen /HPF (0-2)
[2017-04-28 21:13] LABS: BACTERIA,URINE Many /HPF (None Seen); WBC,URINE None Seen /HPF (0-5)
[2017-04-28 21:14] LABS: SQUAMOUS EPITHELIAL CELL,UR None Seen /LPF (None Seen)
[2017-04-28 21:17] LABS: B-TYPE NATRIURETIC PEPTIDE 52 pg/mL (0-100)
[2017-04-28] MEDS ORDERED: SODIUM CHLORIDE 0.9% 1,000 ML IV ONE ×2 (21:30→21:45)
[2017-04-28 21:43] LABS: GLUCOSE,POINT OF CARE 383 MG/DL (70-110)
[2017-04-28] MEDS ORDERED: SODIUM CHLORIDE 0.9% 500 ML IV ONE ×2 (21:45→22:00)
[2017-04-28] MEDS ORDERED: AZITHROMYCIN 500 MG/NS 250 ML IV ONE (21:45)
[2017-04-28] MEDS ORDERED: CefTRIAXone SODIUM 1 GM in DEXTROSE 5%-WATER 10 ML IV ONE (21:45)
[2017-04-28 22:12] LABS: AMPHET/METH SCREEN,URINE NEGATIVE (NEGATIVE); BARBITURATE SCREEN, URINE NEGATIVE (NEGATIVE); BENZODIAZEPINES SCREEN,URINE NEGATIVE (NEGATIVE); CANNABINOID SCREEN,URINE NEGATIVE (NEGATIVE); COCAINE SCREEN,URINE NEGATIVE (NEGATIVE); METHADONE SCREEN, URINE NEGATIVE (NEGATIVE); OPIATE SCREEN,URINE POSITIVE (NEGATIVE); PHENCYCLIDINE SCREEN,URINE NEGATIVE (NEGATIVE)
[2017-04-28] MEDS ORDERED: ACETAMINOPHEN 325 MG TABLET PO PRN (22:30)
[2017-04-28] MEDS ORDERED: 0.9% SODIUM CHLORIDE 10 ML SYRINGE IVP PRN (22:30)
[2017-04-28] MEDS ORDERED: INSULIN ASPART 100 UNITS/ML SQ PRN (22:30)
[2017-04-28] MEDS ORDERED: DEXTROSE 50%-WATER 25 GM/50 ML SYRINGE IVP PRN (22:30)
[2017-04-28] MEDS: IPRATROPIUM BROMIDE 0.5 MG/2.5 ML NEB SOLUTION NEB SCH (23:00)
[2017-04-28] MEDS: ALBUTEROL SULFATE 2.5 MG/0.5 ML NEB SOLUTION NEB SCH (23:00)
[2017-04-28 23:01] VITALS: BP 152/79
[2017-04-28 23:32] LABS: INFLUENZA TYPE A NEGATIVE FOR TYPE A (NEGATIVE); INFLUENZA TYPE B NEGATIVE FOR TYPE B (NEGATIVE)
[2017-04-29] MEDS ORDERED: MAGNESIUM HYDROXIDE SUSPENSION 30 ML UDCUP PO PRN (00:15)
[2017-04-29] MEDS ORDERED: BUDESONIDE 0.5 MG/2 ML NEB SOLUTION NEB SCH (00:15)
[2017-04-29] MEDS ORDERED: ZOLPIDEM TARTRATE 10 MG TABLET PO PRN (00:15)
[2017-04-29] MEDS ORDERED: ACETAMINOPHEN 325 MG TABLET PO PRN (00:15)
[2017-04-29] MEDS ORDERED: ONDANSETRON HCL 4 MG/2 ML VIAL IVP PRN (00:15)
[2017-04-29] MEDS ORDERED: DEXTROSE 50%-WATER 25 GM/50 ML SYRINGE IVP PRN (00:15)
[2017-04-29] MEDS: ALBUTEROL SULFATE 2.5 MG/0.5 ML NEB SOLUTION NEB SCH ×3 (02:39→11:48)
[2017-04-29] MEDS: IPRATROPIUM BROMIDE 0.5 MG/2.5 ML NEB SOLUTION NEB SCH ×3 (02:40→11:48)
[2017-04-29] MEDS ORDERED: DOCU250C91 PO (03:16)
[2017-04-29] MEDS ORDERED: DULO30CA51 PO (03:16)
[2017-04-29] MEDS ORDERED: FOLI1 PO (03:16)
[2017-04-29] MEDS ORDERED: FLUT16H NASAL (03:16)
[2017-04-29] MEDS ORDERED: MELA1TAB8 PO (03:21)
[2017-04-29 03:24] LABS: LACTIC ACID 3.7 mmol/L (0.4-2.0)
[2017-04-29] MEDS ORDERED: PIPERACILLIN/TAZO 3.375 GM/D5W 50 ML IV SCH (04:00)
[2017-04-29 05:18] VITALS: BP 142/74
[2017-04-29] MEDS: VANCOMYCIN HCL 1 GM/D5% WATER 200 ML IV SCH (05:53)
[2017-04-29] MEDS: MethylPREDNISolone SOD SUCC 40 MG/ML VIAL IVP SCH ×4 (05:54→18:00)
[2017-04-29] MEDS: INSULIN ASPART 100 UNITS/ML SQ SCH ×3 (06:03→17:51)
[2017-04-29] MEDS: INSULIN ASPART 100 UNITS/ML SQ PRN ×4 (06:04→21:36)
[2017-04-29 07:03] LABS: GLUCOMETER DEV NAME(LOC) 5S 2N; GLUCOSE,POINT OF CARE 437 MG/DL (70-110)
[2017-04-29 07:05] LABS: ALANINE AMINOTRANSFERASE 57 U/L (12-78); ALBUMIN 3.2 g/dL (3.4-5.0); ALKALINE PHOSPHATASE 75 U/L (46-116); ANION GAP 14 mmol/L (8-16); ASPARTATE AMINOTRANSFERASE 13 U/L (15-37); BILIRUBIN,TOTAL 0.4 mg/dL (0.1-1.0); CALCIUM, TOTAL 8.6 mg/dL (8.8-10.5); CARBON DIOXIDE 28 mmol/L (22-29); CHLORIDE 97 mmol/L (98-107); CREATININE 1.72 mg/dL (0.60-1.30); GLOMERULAR FILTR. RATE CALC 48 mL/min (>60); POTASSIUM 4.2 mmol/L (3.5-5.1); SODIUM SERUM 139 mmol/L (136-145); TOTAL PROTEIN, SERUM 7.2 g/dL (6.4-8.2); UREA NITROGEN, BLOOD 37 mg/dL (7-18)
[2017-04-29 07:09] LABS: HEMOGLOBIN A1C 7.2 % (4.5-6.2)
[2017-04-29 07:19] LABS: GLUCOSE,RANDOM 436 mg/dL (70-110)
[2017-04-29 07:43] VITALS: BP 155/90
[2017-04-29] MEDS: BUDESONIDE 0.5 MG/2 ML NEB SOLUTION NEB SCH ×2 (07:43→19:36)
[2017-04-29 07:44] LABS: C-REACTIVE PROTEIN QUANT < 0.05 mg/dL (0.00-0.30)
[2017-04-29] MEDS: FERROUS SULFATE 325 MG EC TABLET PO SCH ×2 (08:00→11:26)
[2017-04-29 08:10] LABS: BASOPHILS % (AUTO) 0.1 % (0.0-2.0); EOSINOPHILS % (AUTO) 0 % (1.0-6.0); HEMATOCRIT 40.4 % (41-53); HEMOGLOBIN 13.4 g/dL (13.5-17.5); LYMPHOCYTES # (AUTO) 0.5 K/uL (1.0-4.8); LYMPHOCYTES % (AUTO) 3.1 % (22.0-44.0); MEAN CORPUSCULAR HEMOGLOBIN 29.6 pg (26.0-34.0); MEAN CORPUSCULAR HGB CONC 33.3 G/dL (31.0-37.0); MEAN CORPUSCULAR VOLUME 89 fL (80-100); MONOCYTES # (AUTO) 0.4 K/uL (0.1-1.0); MONOCYTES % (AUTO) 2.4 % (2.0-9.0); NEUTROPHILS # (AUTO) 14.2 K/uL (1.8-7.7); NEUTROPHILS % (AUTO) 94.4 % (40.0-70.0); PLATELET COUNT (AUTO) 173 K/uL (150-450); RED BLOOD CELL COUNT(AUTO) 4.54 MIL/uL (4.50-5.90); RED CELL DISTRIBUTION WIDTH 14.5 % (11.5-14.5)
[2017-04-29] MEDS ORDERED: SODIUM CHLORIDE 0.9% 500 ML IV ONE (08:15)
[2017-04-29] MEDS ORDERED: SODIUM CHLORIDE 0.9% 500 ML IV SCH (08:36)
[2017-04-29] MEDS: LUBIPROSTONE 24 MCG CAPSULE PO SCH (09:00)
[2017-04-29] MEDS: LORazepam 0.5 MG TABLET PO SCH ×2 (09:00→20:24)
[2017-04-29] MEDS: FOLIC ACID 0.4 MG TABLET PO SCH ×2 (09:00→14:50)
[2017-04-29] MEDS: BusPIRone HCL 5 MG TABLET PO SCH ×4 (09:00→20:26)
[2017-04-29] MEDS: PANTOPRAZOLE SODIUM 40 MG DR TABLET PO SCH ×2 (09:00→11:27)
[2017-04-29] MEDS: DILTIAZEM HCL 60 MG TABLET PO SCH ×4 (09:00→20:26)
[2017-04-29] MEDS: LACTULOSE 20 GM/30 ML SOLUTION UDCUP PO SCH ×2 (09:00→11:27)
[2017-04-29] MEDS: DOCUSATE SODIUM 100 MG CAPSULE PO SCH ×2 (09:00→20:26)
[2017-04-29] MEDS: TAMSULOSIN HCL 0.4 MG CAPSULE PO SCH ×2 (09:00→11:27)
[2017-04-29] MEDS: APIXABAN 5 MG TABLET PO SCH ×3 (09:00→20:26)
[2017-04-29] MEDS: PYRIDOXINE HCL 50 MG TABLET PO SCH ×2 (09:00→14:50)
[2017-04-29] MEDS: BUMETANIDE 1 MG TABLET PO SCH ×3 (09:00→20:24)
[2017-04-29] MEDS: FLUTICASONE/VILANTEROL 200-25 MCG/INH INHALER [14] IH SCH ×2 (09:00→14:49)
[2017-04-29] MEDS ORDERED: ENOXAPARIN SODIUM 40 MG/0.4 ML PF SYRINGE SQ SCH ×2 (09:00)
[2017-04-29 09:14] LABS: ERYTHROCYTE SEDIMENTATION RATE 13 MM/HR (0-15)
[2017-04-29] MEDS: PIPERACILLIN/TAZO 3.375 GM/D5W 50 ML IV SCH ×2 (10:43→16:00)
[2017-04-29 11:13] LABS: GLUCOMETER DEV NAME(LOC) 5S 2N; GLUCOSE,POINT OF CARE 254 MG/DL (70-110)
[2017-04-29 11:32] VITALS: BP 168/97
[2017-04-29] MEDS: HYDROCODONE/ACETAMINOPHEN 5-325 MG TABLET PO PRN ×2 (11:59→20:27)
[2017-04-29] MEDS: IPRATROPIUM BROMIDE 0.5 MG/2.5 ML NEB SOLUTION NEB PRN ×3 (14:49→22:58)
[2017-04-29] MEDS: ALBUTEROL SULFATE 2.5 MG/0.5 ML NEB SOLUTION NEB PRN ×3 (14:50→22:58)
[2017-04-29 15:44] VITALS: BP 128/58
[2017-04-29 17:53] LABS: GLUCOMETER DEV NAME(LOC) 5N 2S; GLUCOSE,POINT OF CARE 379 MG/DL (70-110)
[2017-04-29 19:58] VITALS: BP 153/82
[2017-04-29 20:56] LABS: ABG A-A DIFF O2 101.6 mmHg (10-20.0); ABG BASE EXCESS 6.6 mmol/L (-2.0-3.0); ABG CARBOXYHEMOGLOBIN 0.6 % (0.0-1.5); ABG HCO3 29.5 mmol/L (22.0-26.0); ABG METHEMOGLOBIN 0.1 % (0.0-1.5); ABG OXYGEN CONTENT 18.9 mL/dL (15.0-23.0); ABG OXYGEN SATURATION 97.8 % (95.0-98.0); ABG OXYHEMOGLOBIN 97.1 % (94.0-100.0); ABG PCO2 47 mmHg (35-45); ABG PH 7.436 (7.35-7.450); ABG TOTAL HEMOGLOBIN 13.8 G/dL (12.0-18.0); O2 DEVICE,BLOOD GAS CANNULA (ROOM AIR); SITE, BLOOD GAS RT BRACHIAL; SOURCE, BLOOD GAS ARTERIAL; TEMPERATURE, FAHRENHEIT, BG 98.5 FAHREN (96.0-98.6)
[2017-04-29] MEDS: INSULIN GLARGINE,HUM.REC.ANLOG 100 UNITS/ML SQ SCH (21:35)
[2017-04-29 23:36] VITALS: BP 138/86
[2017-04-30] MEDS: HYDROCODONE/ACETAMINOPHEN 5-325 MG TABLET PO PRN ×4 (00:38→17:42)
[2017-04-30] MEDS: SODIUM CHLORIDE 0.9% 1,000 ML IV SCH ×5 (02:25→22:29)
[2017-04-30] MEDS: IPRATROPIUM BROMIDE 0.5 MG/2.5 ML NEB SOLUTION NEB PRN ×4 (03:05→23:16)
[2017-04-30] MEDS: ALBUTEROL SULFATE 2.5 MG/0.5 ML NEB SOLUTION NEB PRN ×4 (03:06→23:16)
[2017-04-30 04:26] LABS: BASOPHILS % (AUTO) 0.2 % (0.0-2.0); EOSINOPHILS % (AUTO) 0 % (1.0-6.0); HEMATOCRIT 40.2 % (41-53); HEMOGLOBIN 13.5 g/dL (13.5-17.5); LYMPHOCYTES # (AUTO) 1.4 K/uL (1.0-4.8); LYMPHOCYTES % (AUTO) 6.9 % (22.0-44.0); MEAN CORPUSCULAR HEMOGLOBIN 29.6 pg (26.0-34.0); MEAN CORPUSCULAR HGB CONC 33.7 G/dL (31.0-37.0); MEAN CORPUSCULAR VOLUME 88 fL (80-100); MONOCYTES # (AUTO) 1.3 K/uL (0.1-1.0); MONOCYTES % (AUTO) 6.6 % (2.0-9.0); NEUTROPHILS # (AUTO) 17.3 K/uL (1.8-7.7); PLATELET COUNT (AUTO) 166 K/uL (150-450); RED BLOOD CELL COUNT(AUTO) 4.58 MIL/uL (4.50-5.90); RED CELL DISTRIBUTION WIDTH 14.8 % (11.5-14.5)
[2017-04-30 04:35] LABS: ANION GAP 6 mmol/L (8-16); CALCIUM, TOTAL 8.8 mg/dL (8.8-10.5); CARBON DIOXIDE 37 mmol/L (22-29); CHLORIDE 97 mmol/L (98-107); CREATININE 1.25 mg/dL (0.60-1.30); GLOMERULAR FILTR. RATE CALC > 60 mL/min (>60); GLUCOSE,RANDOM 176 mg/dL (70-110); NEUTROPHILS % (AUTO) 86.3 % (40.0-70.0); POTASSIUM 3.9 mmol/L (3.5-5.1); SODIUM SERUM 140 mmol/L (136-145); UREA NITROGEN, BLOOD 39 mg/dL (7-18)
[2017-04-30 04:50] LABS: B-TYPE NATRIURETIC PEPTIDE 57 pg/mL (0-100)
[2017-04-30 05:00] VITALS: BP 132/79
[2017-04-30 05:07] LABS: GLUCOMETER DEV NAME(LOC) 5S 2N; GLUCOSE,POINT OF CARE 194 MG/DL (70-110)
[2017-04-30] MEDS: MethylPREDNISolone SOD SUCC 40 MG/ML VIAL IVP SCH ×4 (05:52→17:43)
[2017-04-30] MEDS: PIPERACILLIN/TAZO 3.375 GM/D5W 50 ML IV SCH ×3 (05:52→17:44)
[2017-04-30] MEDS: INSULIN ASPART 100 UNITS/ML SQ SCH ×3 (06:17→17:40)
[2017-04-30] MEDS: INSULIN ASPART 100 UNITS/ML SQ PRN ×4 (06:18→20:25)
[2017-04-30] MEDS: VANCOMYCIN HCL 1 GM/D5% WATER 200 ML IV SCH ×2 (06:44→18:23)
[2017-04-30 07:35] VITALS: BP 150/89
[2017-04-30] MEDS: BUDESONIDE 0.5 MG/2 ML NEB SOLUTION NEB SCH ×2 (08:08→19:02)
[2017-04-30] MEDS: FOLIC ACID 0.4 MG TABLET PO SCH (08:51)
[2017-04-30] MEDS: FLUTICASONE/VILANTEROL 200-25 MCG/INH INHALER [14] IH SCH (08:52)
[2017-04-30] MEDS: FERROUS SULFATE 325 MG EC TABLET PO SCH (08:52)
[2017-04-30] MEDS: LORazepam 0.5 MG TABLET PO SCH ×2 (08:52→20:18)
[2017-04-30] MEDS: DOCUSATE SODIUM 100 MG CAPSULE PO SCH ×2 (08:52→20:18)
[2017-04-30] MEDS: PANTOPRAZOLE SODIUM 40 MG DR TABLET PO SCH (08:52)
[2017-04-30] MEDS: TAMSULOSIN HCL 0.4 MG CAPSULE PO SCH (08:52)
[2017-04-30] MEDS: LUBIPROSTONE 24 MCG CAPSULE PO SCH (08:53)
[2017-04-30] MEDS: DILTIAZEM HCL 60 MG TABLET PO SCH ×4 (08:53→20:18)
[2017-04-30] MEDS: BUMETANIDE 1 MG TABLET PO SCH ×2 (08:53→20:17)
[2017-04-30] MEDS: APIXABAN 5 MG TABLET PO SCH ×2 (08:53→20:17)
[2017-04-30] MEDS: PYRIDOXINE HCL 50 MG TABLET PO SCH (08:54)
[2017-04-30] MEDS: BusPIRone HCL 5 MG TABLET PO SCH ×3 (08:54→20:18)
[2017-04-30] MEDS: LACTULOSE 20 GM/30 ML SOLUTION UDCUP PO SCH (08:59)
[2017-04-30 11:32] VITALS: BP 130/65
[2017-04-30 15:16] VITALS: BP 146/75
[2017-04-30 15:17] LABS: GLUCOMETER DEV NAME(LOC) 5N 2S; GLUCOSE,POINT OF CARE 350 MG/DL (70-110)
[2017-04-30 19:11] VITALS: BP 138/86
[2017-04-30] MEDS: INSULIN GLARGINE,HUM.REC.ANLOG 100 UNITS/ML SQ SCH (20:25)
[2017-04-30 20:33] LABS: GLUCOMETER DEV NAME(LOC) 5N 2S; GLUCOSE,POINT OF CARE 299 MG/DL (70-110)
[2017-04-30 23:57] VITALS: BP 134/85
[2017-05-01] MEDS: MethylPREDNISolone SOD SUCC 40 MG/ML VIAL IVP SCH ×5 (00:36→23:53)
[2017-05-01] MEDS: HYDROCODONE/ACETAMINOPHEN 5-325 MG TABLET PO PRN ×3 (00:36→20:31)
[2017-05-01] MEDS: PIPERACILLIN/TAZO 3.375 GM/D5W 50 ML IV SCH ×5 (00:38→23:53)
[2017-05-01] MEDS: ALBUTEROL SULFATE 2.5 MG/0.5 ML NEB SOLUTION NEB PRN ×5 (03:21→23:41)
[2017-05-01] MEDS: IPRATROPIUM BROMIDE 0.5 MG/2.5 ML NEB SOLUTION NEB PRN ×5 (03:22→23:41)
[2017-05-01 03:48] VITALS: BP 136/79
[2017-05-01] MEDS: INSULIN ASPART 100 UNITS/ML SQ PRN ×4 (06:45→20:58)
[2017-05-01] MEDS: SODIUM CHLORIDE 0.9% 1,000 ML IV SCH (06:45)
[2017-05-01] MEDS: VANCOMYCIN HCL 1 GM/D5% WATER 200 ML IV SCH ×2 (06:46→18:26)
[2017-05-01 07:23] VITALS: BP 177/85
[2017-05-01] MEDS: FLUTICASONE/VILANTEROL 200-25 MCG/INH INHALER [14] IH SCH (07:58)
[2017-05-01] MEDS: INSULIN ASPART 100 UNITS/ML SQ SCH ×3 (08:00→18:21)
[2017-05-01] MEDS: FERROUS SULFATE 325 MG EC TABLET PO SCH (08:01)
[2017-05-01] MEDS: LUBIPROSTONE 24 MCG CAPSULE PO SCH (08:04)
[2017-05-01] MEDS: LORazepam 0.5 MG TABLET PO SCH ×2 (08:04→20:30)
[2017-05-01] MEDS: DILTIAZEM HCL 60 MG TABLET PO SCH ×4 (08:04→20:31)
[2017-05-01] MEDS: DOCUSATE SODIUM 100 MG CAPSULE PO SCH ×2 (08:05→20:30)
[2017-05-01] MEDS: TAMSULOSIN HCL 0.4 MG CAPSULE PO SCH (08:05)
[2017-05-01] MEDS: BusPIRone HCL 5 MG TABLET PO SCH ×3 (08:05→20:31)
[2017-05-01] MEDS: PYRIDOXINE HCL 50 MG TABLET PO SCH (08:05)
[2017-05-01] MEDS: FOLIC ACID 0.4 MG TABLET PO SCH (08:06)
[2017-05-01] MEDS: BUMETANIDE 1 MG TABLET PO SCH ×2 (08:06→20:30)
[2017-05-01] MEDS: APIXABAN 5 MG TABLET PO SCH ×2 (08:06→20:30)
[2017-05-01] MEDS: PANTOPRAZOLE SODIUM 40 MG DR TABLET PO SCH (08:06)
[2017-05-01] MEDS: LACTULOSE 20 GM/30 ML SOLUTION UDCUP PO SCH (08:08)
[2017-05-01 09:45] LABS: ANION GAP 9 mmol/L (8-16); CARBON DIOXIDE 31 mmol/L (22-29); CHLORIDE 97 mmol/L (98-107); CREATININE 1.31 mg/dL (0.60-1.30); GLOMERULAR FILTR. RATE CALC > 60 mL/min (>60); GLUCOSE,RANDOM 355 mg/dL (70-110); POTASSIUM 4.6 mmol/L (3.5-5.1); SODIUM SERUM 137 mmol/L (136-145); UREA NITROGEN, BLOOD 40 mg/dL (7-18)
[2017-05-01] MEDS: BUDESONIDE 0.5 MG/2 ML NEB SOLUTION NEB SCH ×2 (10:05→19:27)
[2017-05-01 11:23] VITALS: BP 141/87
[2017-05-01 16:13] LABS: ABG A-A DIFF O2 128.3 mmHg (10-20.0); ABG HCO3 30.7 mmol/L (22.0-26.0); ABG METHEMOGLOBIN 0.1 % (0.0-1.5); ABG OXYGEN CONTENT 16.9 mL/dL (15.0-23.0); ABG OXYGEN SATURATION 90.1 % (95.0-98.0); ABG OXYHEMOGLOBIN 89.1 % (94.0-100.0); ABG PCO2 60 mmHg (35-45); ABG PH 7.374 (7.35-7.450); ABG TOTAL HEMOGLOBIN 13.5 G/dL (12.0-18.0); O2 DEVICE,BLOOD GAS CANNULA (ROOM AIR); PO2, ARTERIAL BG 58.8 mmHg (79.0-87.0); SITE, BLOOD GAS RT RADIAL; SOURCE, BLOOD GAS ARTERIAL; TEMPERATURE, FAHRENHEIT, BG 98.6 FAHREN (96.0-98.6)
[2017-05-01 18:38] LABS: GLUCOMETER DEV NAME(LOC) 5S 2N; GLUCOSE,POINT OF CARE 387 MG/DL (70-110)
[2017-05-01 18:38] LABS: GLUCOMETER DEV NAME(LOC) 5S 2N; GLUCOSE,POINT OF CARE 337 MG/DL (70-110)
[2017-05-01 18:38] LABS: GLUCOMETER DEV NAME(LOC) 5S 2N; GLUCOSE,POINT OF CARE 238 MG/DL (70-110)
[2017-05-01 19:52] VITALS: BP 151/85
[2017-05-01] MEDS: INSULIN GLARGINE,HUM.REC.ANLOG 100 UNITS/ML SQ SCH (20:56)
[2017-05-01 23:49] VITALS: BP 150/83
[2017-05-02 01:02] LABS: GLUCOMETER DEV NAME(LOC) 5N 2S; GLUCOSE,POINT OF CARE 355 MG/DL (70-110)
[2017-05-02 01:02] LABS: GLUCOMETER DEV NAME(LOC) 5N 2S; GLUCOSE,POINT OF CARE 274 MG/DL (70-110)
[2017-05-02 01:02] LABS: GLUCOMETER DEV NAME(LOC) 5N 2S; GLUCOSE,POINT OF CARE 290 MG/DL (70-110)
[2017-05-02] MEDS: PIPERACILLIN/TAZO 3.375 GM/D5W 50 ML IV SCH ×4 (05:19→23:38)
[2017-05-02] MEDS: MethylPREDNISolone SOD SUCC 40 MG/ML VIAL IVP SCH ×4 (05:20→23:39)
[2017-05-02 05:48] VITALS: BP 139/76
[2017-05-02 05:48] LABS: GLUCOMETER DEV NAME(LOC) 5N 2S; GLUCOSE,POINT OF CARE 195 MG/DL (70-110)
[2017-05-02] MEDS: INSULIN ASPART 100 UNITS/ML SQ PRN ×4 (06:14→21:48)
[2017-05-02] MEDS: VANCOMYCIN HCL 1 GM/D5% WATER 200 ML IV SCH ×2 (06:16→18:43)
[2017-05-02 07:56] VITALS: BP 157/68
[2017-05-02] MEDS: BUDESONIDE 0.5 MG/2 ML NEB SOLUTION NEB SCH ×2 (08:08→20:11)
[2017-05-02] MEDS: ALBUTEROL SULFATE 2.5 MG/0.5 ML NEB SOLUTION NEB PRN ×3 (08:08→22:18)
[2017-05-02] MEDS: IPRATROPIUM BROMIDE 0.5 MG/2.5 ML NEB SOLUTION NEB PRN ×3 (08:08→22:18)
[2017-05-02] MEDS: LACTULOSE 20 GM/30 ML SOLUTION UDCUP PO SCH (08:40)
[2017-05-02] MEDS: PYRIDOXINE HCL 50 MG TABLET PO SCH (08:41)
[2017-05-02] MEDS: FERROUS SULFATE 325 MG EC TABLET PO SCH (08:41)
[2017-05-02] MEDS: FOLIC ACID 0.4 MG TABLET PO SCH (08:41)
[2017-05-02] MEDS: BUMETANIDE 1 MG TABLET PO SCH ×2 (08:41→21:32)
[2017-05-02] MEDS: DOCUSATE SODIUM 100 MG CAPSULE PO SCH ×2 (08:41→21:32)
[2017-05-02] MEDS: TAMSULOSIN HCL 0.4 MG CAPSULE PO SCH (08:41)
[2017-05-02] MEDS: PANTOPRAZOLE SODIUM 40 MG DR TABLET PO SCH (08:41)
[2017-05-02] MEDS: LORazepam 0.5 MG TABLET PO SCH ×2 (08:42→21:32)
[2017-05-02] MEDS: APIXABAN 5 MG TABLET PO SCH ×2 (08:42→21:32)
[2017-05-02] MEDS: FLUTICASONE/VILANTEROL 200-25 MCG/INH INHALER [14] IH SCH (08:42)
[2017-05-02] MEDS: LUBIPROSTONE 24 MCG CAPSULE PO SCH (08:42)
[2017-05-02] MEDS: DILTIAZEM HCL 60 MG TABLET PO SCH ×4 (08:42→21:32)
[2017-05-02] MEDS: BusPIRone HCL 5 MG TABLET PO SCH ×3 (08:42→21:32)
[2017-05-02 08:49] LABS: ABG A-A DIFF O2 82.9 mmHg (10-20.0); ABG BASE EXCESS 7.3 mmol/L (-2.0-3.0); ABG CARBOXYHEMOGLOBIN 1.3 % (0.0-1.5); ABG HCO3 29.4 mmol/L (22.0-26.0); ABG METHEMOGLOBIN 0.3 % (0.0-1.5); ABG OXYGEN CONTENT 16.5 mL/dL (15.0-23.0); ABG OXYGEN SATURATION 86.5 % (95.0-98.0); ABG OXYHEMOGLOBIN 85.1 % (94.0-100.0); ABG PCO2 54 mmHg (35-45); ABG PH 7.393 (7.35-7.450); ABG TOTAL HEMOGLOBIN 13.8 G/dL (12.0-18.0); SOURCE, BLOOD GAS ARTERIAL; TEMPERATURE, FAHRENHEIT, BG 98.6 FAHREN (96.0-98.6)
[2017-05-02 08:52] LABS: O2 DEVICE,BLOOD GAS CANNULA (ROOM AIR); SITE, BLOOD GAS RT RADIAL
[2017-05-02 09:01] LABS: ANION GAP 9 mmol/L (8-16); CARBON DIOXIDE 31 mmol/L (22-29); CHLORIDE 99 mmol/L (98-107); CREATININE 1.31 mg/dL (0.60-1.30); GLOMERULAR FILTR. RATE CALC > 60 mL/min (>60); GLUCOSE,RANDOM 189 mg/dL (70-110); POTASSIUM 4.8 mmol/L (3.5-5.1); SODIUM SERUM 139 mmol/L (136-145); UREA NITROGEN, BLOOD 36 mg/dL (7-18); VANCOMYCIN,RANDOM 20.2 mcg/mL (25.0-50.0)
[2017-05-02] MEDS: INSULIN ASPART 100 UNITS/ML SQ SCH ×3 (09:10→17:55)
[2017-05-02 10:14] LABS: GLUCOMETER DEV NAME(LOC) 5N 2S; GLUCOSE,POINT OF CARE 301 MG/DL (70-110)
[2017-05-02 11:20] VITALS: BP 110/71
[2017-05-02 16:08] VITALS: BP 118/63
[2017-05-02] MEDS: HYDROCODONE/ACETAMINOPHEN 5-325 MG TABLET PO PRN (16:26)
[2017-05-02 18:53] LABS: GLUCOMETER DEV NAME(LOC) 5N 2S; GLUCOSE,POINT OF CARE 247 MG/DL (70-110)
[2017-05-02 18:53] LABS: GLUCOMETER DEV NAME(LOC) 5N 2S; GLUCOSE,POINT OF CARE 291 MG/DL (70-110)
[2017-05-02] MEDS ORDERED: 0.9% SODIUM CHLORIDE 5 ML NEB SOLUTION NEB ONE (19:56)
[2017-05-02 20:44] VITALS: BP 139/80
[2017-05-02] MEDS: INSULIN GLARGINE,HUM.REC.ANLOG 100 UNITS/ML SQ SCH (21:54)
[2017-05-03] VITALS (8 sets, daily range): BP systolic 109–144; BP diastolic 67–80
[2017-05-03] MEDS: HYDROCODONE/ACETAMINOPHEN 5-325 MG TABLET PO PRN (01:54)
[2017-05-03] MEDS: PIPERACILLIN/TAZO 3.375 GM/D5W 50 ML IV SCH ×4 (05:27→23:50)
[2017-05-03] MEDS: MethylPREDNISolone SOD SUCC 40 MG/ML VIAL IVP SCH ×4 (05:27→23:50)
[2017-05-03] MEDS: INSULIN ASPART 100 UNITS/ML SQ PRN ×4 (06:11→21:21)
[2017-05-03] MEDS: VANCOMYCIN HCL 1 GM/D5% WATER 200 ML IV SCH ×2 (06:13→18:41)
[2017-05-03 07:22] LABS: GLUCOMETER DEV NAME(LOC) 5N 2S; GLUCOSE,POINT OF CARE 306 MG/DL (70-110)
[2017-05-03 07:22] LABS: GLUCOMETER DEV NAME(LOC) 5N 2S; GLUCOSE,POINT OF CARE 324 MG/DL (70-110)
[2017-05-03 07:27] LABS: CALCIUM, TOTAL 8.7 mg/dL (8.8-10.5); CREATININE 1.47 mg/dL (0.60-1.30); POTASSIUM 4.5 mmol/L (3.5-5.1)
[2017-05-03] MEDS: BUDESONIDE 0.5 MG/2 ML NEB SOLUTION NEB SCH ×2 (08:10→20:45)
[2017-05-03] MEDS: IPRATROPIUM BROMIDE 0.5 MG/2.5 ML NEB SOLUTION NEB PRN ×3 (08:10→20:45)
[2017-05-03] MEDS: ALBUTEROL SULFATE 2.5 MG/0.5 ML NEB SOLUTION NEB PRN ×2 (08:10→12:20)
[2017-05-03] MEDS: LACTULOSE 20 GM/30 ML SOLUTION UDCUP PO SCH (09:34)
[2017-05-03] MEDS: LORazepam 0.5 MG TABLET PO SCH ×2 (09:35→19:52)
[2017-05-03] MEDS: LUBIPROSTONE 24 MCG CAPSULE PO SCH (09:35)
[2017-05-03] MEDS: FLUTICASONE/VILANTEROL 200-25 MCG/INH INHALER [14] IH SCH (09:35)
[2017-05-03] MEDS: BUMETANIDE 1 MG TABLET PO SCH ×2 (09:36→21:13)
[2017-05-03] MEDS: BusPIRone HCL 5 MG TABLET PO SCH ×3 (09:36→21:13)
[2017-05-03] MEDS: DOCUSATE SODIUM 100 MG CAPSULE PO SCH ×2 (09:36→21:13)
[2017-05-03] MEDS: DILTIAZEM HCL 60 MG TABLET PO SCH ×4 (09:36→23:49)
[2017-05-03] MEDS: APIXABAN 5 MG TABLET PO SCH ×2 (09:37→21:13)
[2017-05-03] MEDS: PANTOPRAZOLE SODIUM 40 MG DR TABLET PO SCH (09:37)
[2017-05-03] MEDS: TAMSULOSIN HCL 0.4 MG CAPSULE PO SCH (09:37)
[2017-05-03] MEDS: FOLIC ACID 0.4 MG TABLET PO SCH (09:37)
[2017-05-03] MEDS: PYRIDOXINE HCL 50 MG TABLET PO SCH (09:38)
[2017-05-03] MEDS: FERROUS SULFATE 325 MG EC TABLET PO SCH (09:38)
[2017-05-03] MEDS: INSULIN ASPART 100 UNITS/ML SQ SCH ×3 (09:41→17:56)
[2017-05-03] MEDS: MORPHINE SULFATE 2 MG/ML SYRINGE IVP PRN ×3 (09:55→20:55)
[2017-05-03] MEDS: INSULIN GLARGINE,HUM.REC.ANLOG 100 UNITS/ML SQ SCH (21:38)
[2017-05-03 22:43] LABS: GLUCOMETER DEV NAME(LOC) 5N 2S; GLUCOSE,POINT OF CARE 250 MG/DL (70-110)
[2017-05-04] MEDS: ALBUTEROL SULFATE 2.5 MG/0.5 ML NEB SOLUTION NEB PRN ×4 (00:43→19:38)
[2017-05-04] MEDS: IPRATROPIUM BROMIDE 0.5 MG/2.5 ML NEB SOLUTION NEB PRN ×4 (00:43→19:38)
[2017-05-04 05:03] VITALS: BP 130/83
[2017-05-04] MEDS: MORPHINE SULFATE 2 MG/ML SYRINGE IVP PRN (05:14)
[2017-05-04] MEDS: INSULIN ASPART 100 UNITS/ML SQ PRN ×4 (05:22→22:03)
[2017-05-04] MEDS: MethylPREDNISolone SOD SUCC 40 MG/ML VIAL IVP SCH ×3 (05:38→17:58)
[2017-05-04] MEDS: PIPERACILLIN/TAZO 3.375 GM/D5W 50 ML IV SCH ×3 (05:39→17:58)
[2017-05-04] MEDS: VANCOMYCIN HCL 1 GM/D5% WATER 200 ML IV SCH ×2 (06:32→17:59)
[2017-05-04 07:11] LABS: ANION GAP 9 mmol/L (8-16); CALCIUM, TOTAL 8.7 mg/dL (8.8-10.5); CARBON DIOXIDE 32 mmol/L (22-29); CHLORIDE 97 mmol/L (98-107); CREATININE 1.37 mg/dL (0.60-1.30); GLOMERULAR FILTR. RATE CALC > 60 mL/min (>60); GLUCOSE,RANDOM 345 mg/dL (70-110); POTASSIUM 4.2 mmol/L (3.5-5.1); SODIUM SERUM 138 mmol/L (136-145); UREA NITROGEN, BLOOD 44 mg/dL (7-18)
[2017-05-04] MEDS: BUDESONIDE 0.5 MG/2 ML NEB SOLUTION NEB SCH ×2 (07:47→19:37)
[2017-05-04 08:00] VITALS: BP 131/85
[2017-05-04] MEDS ORDERED: DIAZEPAM 5 MG TABLET PO PRN (08:15)
[2017-05-04] MEDS: LORazepam 0.5 MG TABLET PO SCH ×2 (08:37→21:36)
[2017-05-04] MEDS: TAMSULOSIN HCL 0.4 MG CAPSULE PO SCH (08:37)
[2017-05-04] MEDS: LACTULOSE 20 GM/30 ML SOLUTION UDCUP PO SCH (08:37)
[2017-05-04] MEDS: FERROUS SULFATE 325 MG EC TABLET PO SCH (08:37)
[2017-05-04] MEDS: FLUTICASONE/VILANTEROL 200-25 MCG/INH INHALER [14] IH SCH (08:38)
[2017-05-04] MEDS: LUBIPROSTONE 24 MCG CAPSULE PO SCH (08:38)
[2017-05-04] MEDS: DOCUSATE SODIUM 100 MG CAPSULE PO SCH ×2 (08:38→21:36)
[2017-05-04] MEDS: PANTOPRAZOLE SODIUM 40 MG DR TABLET PO SCH (08:38)
[2017-05-04] MEDS: BusPIRone HCL 5 MG TABLET PO SCH ×3 (08:40→21:36)
[2017-05-04] MEDS: DILTIAZEM HCL 60 MG TABLET PO SCH ×4 (08:40→23:52)
[2017-05-04] MEDS: BUMETANIDE 1 MG TABLET PO SCH ×2 (08:40→21:35)
[2017-05-04] MEDS: FOLIC ACID 0.4 MG TABLET PO SCH (08:41)
[2017-05-04] MEDS: APIXABAN 5 MG TABLET PO SCH ×2 (08:41→21:35)
[2017-05-04] MEDS: PYRIDOXINE HCL 50 MG TABLET PO SCH (08:43)
[2017-05-04] MEDS: INSULIN ASPART 100 UNITS/ML SQ SCH ×3 (08:44→18:08)
[2017-05-04 11:57] VITALS: BP 145/77
[2017-05-04 15:38] VITALS: BP 146/90
[2017-05-04 19:37] VITALS: BP 130/68
[2017-05-04] MEDS: HYDROCODONE/ACETAMINOPHEN 5-325 MG TABLET PO PRN (19:44)
[2017-05-04] MEDS: INSULIN GLARGINE,HUM.REC.ANLOG 100 UNITS/ML SQ SCH (22:02)
[2017-05-04 23:49] VITALS: BP_SYST 134; BP_SYST 150; BP_DIAS 64; BP_DIAS 74
[2017-05-05] MEDS: PIPERACILLIN/TAZO 3.375 GM/D5W 50 ML IV SCH ×4 (00:56→17:28)
[2017-05-05] MEDS: MethylPREDNISolone SOD SUCC 40 MG/ML VIAL IVP SCH ×4 (00:58→17:27)
[2017-05-05 03:53] LABS: GLUCOMETER DEV NAME(LOC) 5N 2S; GLUCOSE,POINT OF CARE 277 MG/DL (70-110)
[2017-05-05 03:55] VITALS: BP 125/77
[2017-05-05] MEDS: MORPHINE SULFATE 2 MG/ML SYRINGE IVP PRN ×4 (04:02→19:37)
[2017-05-05] MEDS: INSULIN ASPART 100 UNITS/ML SQ PRN ×4 (06:10→20:29)
[2017-05-05] MEDS: VANCOMYCIN HCL 1 GM/D5% WATER 200 ML IV SCH ×2 (06:51→17:55)
[2017-05-05] MEDS: ALBUTEROL SULFATE 2.5 MG/0.5 ML NEB SOLUTION NEB PRN ×3 (06:51→18:43)
[2017-05-05] MEDS: IPRATROPIUM BROMIDE 0.5 MG/2.5 ML NEB SOLUTION NEB PRN ×3 (06:51→18:43)
[2017-05-05 07:02] VITALS: BP 106/67
[2017-05-05 07:23] LABS: ANION GAP 5 mmol/L (8-16); CALCIUM, TOTAL 8.8 mg/dL (8.8-10.5); CARBON DIOXIDE 34 mmol/L (22-29); CHLORIDE 100 mmol/L (98-107); GLOMERULAR FILTR. RATE CALC > 60 mL/min (>60); GLUCOSE,RANDOM 303 mg/dL (70-110); POTASSIUM 4.4 mmol/L (3.5-5.1); SODIUM SERUM 139 mmol/L (136-145); UREA NITROGEN, BLOOD 50 mg/dL (7-18); VANCOMYCIN,RANDOM 19.3 mcg/mL (25.0-50.0)
[2017-05-05] MEDS: INSULIN ASPART 100 UNITS/ML SQ SCH ×3 (07:30→17:31)
[2017-05-05] MEDS: BUDESONIDE 0.5 MG/2 ML NEB SOLUTION NEB SCH ×2 (08:13→20:55)
[2017-05-05] MEDS: LACTULOSE 20 GM/30 ML SOLUTION UDCUP PO SCH (08:39)
[2017-05-05] MEDS: DOCUSATE SODIUM 100 MG CAPSULE PO SCH ×2 (08:39→20:21)
[2017-05-05] MEDS: FERROUS SULFATE 325 MG EC TABLET PO SCH (08:39)
[2017-05-05] MEDS: LORazepam 0.5 MG TABLET PO SCH ×2 (08:39→20:21)
[2017-05-05] MEDS: TAMSULOSIN HCL 0.4 MG CAPSULE PO SCH (08:39)
[2017-05-05] MEDS: PANTOPRAZOLE SODIUM 40 MG DR TABLET PO SCH (08:39)
[2017-05-05] MEDS: FOLIC ACID 0.4 MG TABLET PO SCH (08:40)
[2017-05-05] MEDS: LUBIPROSTONE 24 MCG CAPSULE PO SCH (08:40)
[2017-05-05] MEDS: BUMETANIDE 1 MG TABLET PO SCH ×2 (08:40→20:21)
[2017-05-05] MEDS: APIXABAN 5 MG TABLET PO SCH ×2 (08:40→20:21)
[2017-05-05] MEDS: BusPIRone HCL 5 MG TABLET PO SCH ×3 (08:40→20:21)
[2017-05-05] MEDS: FLUTICASONE/VILANTEROL 200-25 MCG/INH INHALER [14] IH SCH (08:40)
[2017-05-05] MEDS: PYRIDOXINE HCL 50 MG TABLET PO SCH (08:41)
[2017-05-05] MEDS: DILTIAZEM HCL 60 MG TABLET PO SCH ×3 (09:00→16:00)
[2017-05-05 09:03] LABS: GLUCOMETER DEV NAME(LOC) 5S 2N; GLUCOSE,POINT OF CARE 212 MG/DL (70-110)
[2017-05-05 09:03] LABS: GLUCOMETER DEV NAME(LOC) 5S 2N; GLUCOSE,POINT OF CARE 288 MG/DL (70-110)
[2017-05-05 09:10] LABS: GLUCOMETER DEV NAME(LOC) 5S 2N; GLUCOSE,POINT OF CARE 300 MG/DL (70-110)
[2017-05-05 09:10] LABS: GLUCOMETER DEV NAME(LOC) 5S 2N; GLUCOSE,POINT OF CARE 308 MG/DL (70-110)
[2017-05-05 09:10] LABS: GLUCOMETER DEV NAME(LOC) 5S 2N; GLUCOSE,POINT OF CARE 423 MG/DL (70-110)
[2017-05-05 09:10] LABS: GLUCOMETER DEV NAME(LOC) 5S 2N; GLUCOSE,POINT OF CARE 332 MG/DL (70-110)
[2017-05-05 09:10] LABS: GLUCOMETER DEV NAME(LOC) 5S 2N; GLUCOSE,POINT OF CARE 319 MG/DL (70-110)
[2017-05-05 09:10] LABS: GLUCOMETER DEV NAME(LOC) 5S 2N; GLUCOSE,POINT OF CARE 257 MG/DL (70-110)
[2017-05-05 11:22] VITALS: BP 100/63
[2017-05-05 15:14] VITALS: BP 102/70
[2017-05-05 19:32] VITALS: BP 147/87
[2017-05-05 19:34] VITALS: BP 131/73
[2017-05-05 20:03] LABS: GLUCOMETER DEV NAME(LOC) 5S 2N; GLUCOSE,POINT OF CARE 326 MG/DL (70-110)
[2017-05-05 20:03] LABS: GLUCOMETER DEV NAME(LOC) 5S 2N; GLUCOSE,POINT OF CARE 349 MG/DL (70-110)
[2017-05-05] MEDS: INSULIN GLARGINE,HUM.REC.ANLOG 100 UNITS/ML SQ SCH (20:30)
[2017-05-05] MEDS ORDERED: 0.9% SODIUM CHLORIDE 5 ML NEB SOLUTION NEB ONE (20:46)
== END 2017-05-05 21:35 | DRG 871 ==
LOC: EMS 19:39 → 5N 22:04
PROVIDERS: ADMIT Hospitalist; ATTEND Hospitalist
PROC: 5A09557 Assistance with Respiratory Ventilation, Greater than 96 Consecutive Hours, Continuous Positive Airway Pressure (ICD-10-PCS; principal; 2017-04-28)
DX: A41.9 Sepsis, unspecified organism (principal); J96.21 Acute and chronic respiratory failure with hypoxia; I50.31 Acute diastolic (congestive) heart failure; Z93.0 Tracheostomy status; J96.22 Acute and chronic respiratory failure with hypercapnia; J44.1 Chronic obstructive pulmonary disease with (acute) exacerbation; I11.0 Hypertensive heart disease with heart failure; I25.10 Atherosclerotic heart disease of native coronary artery without angina pectoris; E78.00 Pure hypercholesterolemia, unspecified; E78.5 Hyperlipidemia, unspecified; K21.9 Gastro-esophageal reflux disease without esophagitis; J40 Bronchitis, not specified as acute or chronic; F41.1 Generalized anxiety disorder; E11.65 Type 2 diabetes mellitus with hyperglycemia; Z79.4 Long term (current) use of insulin; Z79.899 Other long term (current) drug therapy; Z74.01 Bed confinement status; Z82.49 Family history of ischemic heart disease and other diseases of the circulatory system; Z83.3 Family history of diabetes mellitus; Z87.01 Personal history of pneumonia (recurrent); Z87.891 Personal history of nicotine dependence
CPT/HCPCS: 71250; 82306; 82805; 82962; 83036; 83605; 83735; 84100; 85651; 86140; 87040; 87081; 87086; 87804; 93005; 94640; 94644; 94660; 96361; 96374; 96375; 97161; 99285; J0456; J0696; J1100; J1815; J2270; J2543; J2920; J3370; J7030; J7060